=== PATIENT | female | born 1995 | race African-American/Black ===

== ENCOUNTER → 2020-10-20 17:38 | Outpatient (CLI) | payer BC, SELFPAY ==
[2020-10-20 19:00] LABS: HCG,Quantitative 96392 mIU/ml (0-5.42)
== END ==
PROVIDERS: Visit Provider Obstetrics & Gynecology
DX: Z32.00 Encounter for pregnancy test, result unknown (principal)
CPT/HCPCS: 36415; 84702

== ENCOUNTER 2020-10-20 19:20 | Emergency (ER) | payer BC, SELFPAY ==
--- NOTE | 2020-10-20 19:15 | ECG_ITS ---
APPROVED REPORT Exam: Resting ECG HR:96 bpm ECG Measurements Heart Rate 96 AXES AK 114 P 42 QRSd 84 QRS 51 QT 352 T 29 QTc 444 Conclusion Normal sinus rhythm Nonspecific ST and T wave abnormality Abnormal ECG Electronically signed by : Soren Rowe, 10/21/2020 09:58:43
[2020-10-20 19:20] VITALS: BP 169/107; PULSE 92; RESP 16; TEMP 37.4; O2SAT 97; BMI 33.3
--- NOTE | 2020-10-20 19:21 | HMH.EDGENADL ---
ED Disposition Condition on Discharge: Fair - Critical Care Critical Care Time: No <Davidson Kaye - Last Filed: 10/20/20 20:04> <Sherman Brunson - Last Filed: 10/20/20 21:01> Clinical Impression: Vomiting Qualifiers: Vomiting type: unspecified Vomiting Intractability: unspecified Nausea presence: unspecified Qualified Code(s): R11.10 - Vomiting, unspecified Qualifiers: Weeks of gestation: 9 weeks Qualified Code(s): Z3A.09 - 9 weeks gestation of Disposition: Home, Self-Care Instructions: DI for -- Discomforts and Remedies Additional Instructions: use meds and call ob for follow up Prescriptions: Promethazine HCl [Phenergan 25mg tab] 25 mg PO Q6H PRN #20 tab PRN Reason: Nausea And Vomiting Transmission Status: Pending to [id number] Referrals: PCP,Kori [Primary Care Provider] - Jessica Lafleur MD [Staff Physician] - Attestation: On 10/20/20, the high probability of a clinically significant, sudden or life threatening deterioration of the following system(s) required my full and direct attention, intervention and personal management. The time I documented below is in addition to time spent performing reported procedures but includes the following listed in this critical care notation. Medical Decision Making - Medical Records Medical records reviewed: Yes: I reviewed the patient's medical records. - Nilesh Inquiry Pt receiving controlled substance: No - Lab Data Result diagrams: 10/20/20 19:22 10/20/20 19:22 <AndivaldezDavidson - Last Filed: 10/20/20 20:04> - Lab Data Lab results reviewed: Yes: I reviewed the patient's lab results. Result diagrams: 10/20/20 19:22 10/20/20 19:22 - US Data US Images: Pelvis ED US Reviewed: Yes: I discussed the US results w/the radiologist Preliminary Findings: Normal/NAD - Physician Consults Physician Consulted: shayla Reason -: Pt condition <Sherman Brunson - Last Filed: 10/20/20 21:01> Vital Signs: 10/20/20 19:20 10/20/20 20:00 10/20/20 20:30 Temperature 99.3 F Temperature Source Oral Pulse Rate [Left Radial] 92 H 85 86 Respiratory Rate 16 16 Blood Pressure [Right Arm] 169/107 H 185/99 H 133/86 Blood Pressure Mean [Right Arm] 127 127 101 Blood Pressure Source [Right Arm] Automatic Cuff Automatic Cuff Automatic Cuff Blood Pressure Position [Right Arm] Supine Supine Supine 02 Sat by Pulse Oximetry 97 99 99 Oxygen Delivery Method Room Air Room Air Room Air - Lab Data Lab Results 10/20/20 19:22: WBC 9.6, RBC 5.77 H, Hgb 17.1 H, Hct 50.6 H, MCV 87.6, MCH 29.6, MCHC 33.8, RDW 12.9, Plt Count 520 H, MPV 7.0 L, Neut % (Auto) 68.5, Lymph % (Auto) 24.8, [place] % (Auto) 4.6, Eos % (Auto) 1.1, Baso % (Auto) 1.0, Neut # (Auto) 6.5, Lymph # (Auto) 2.4, [place] # (Auto) 0.4, Eos # (Auto) 0.1, Baso # (Auto) 0.1 10/20/20 19:22: Sodium 140, Potassium 3.0 L, Chloride 101, Carbon Dioxide 25, Anion Gap 17.0 H, BUN 7, Creatinine 0.70, Estimated Creat Clear 177, Estimated GFR 103, Est GFR ( Amer) 124, Glucose 117 H, Calcium 10.1, Magnesium 2.2, Total Bilirubin 0.6, AST 26, ALT 16, Alkaline Phosphatase 85, Total Protein 9.2 H, Albumin 5.0, Globulin 4.2 H, Albumin/Globulin Ratio 1.2, Lipase 70, HCG, Quant 28121 H Orders (Tests/Meds): ED MEDICATIONS Generic Name Dose Route Start Last Admin Trade Name Freq PRN Reason Stop Dose Admin Lactated Ringer's 1,000 mls @ 999 mls/hr 10/20/20 19:30 10/20/20 20:29 Lactated Ringer's 1000 Ml Bag IV 10/20/20 20:30 999 mls/hr .Q1H1M GABRIELLE Administration Discontinued Medications Generic Name Dose Route Start Last Admin Trade Name Freq PRN Reason Stop Dose Admin Metoclopramide HCl 10 mg 10/20/20 19:27 10/20/20 20:27 Metoclopramide Hcl 10mg/2ml Vial IVP 10/20/20 19:28 Not Given ONCE ONE Ondansetron HCl 4 mg 10/20/20 20:19 10/20/20 20:25 Ondansetron 4mg/2ml Vial IV 10/20/20 20:20 4 mg ONCE ONE Administration ORDERS Category Date Time
--- NOTE | 2020-10-20 19:27 | US_ITS ---
PROCEDURE: US OB <= 14 WEEKS FETUS CLINICAL INDICATION: 9 weeks + abd pain COMPARISON: No exams were available for comparison FINDINGS: An intrauterine gestational sac is present with a pole with a crown-rump length of 1.64 cm correlating to gestational age of 8 weeks 1 day. heart tones are present with an FHR of 179. Yolk sac is noted. Small right corpus luteum cyst at 1.5 cm IMPRESSION: Live IUP at 8 weeks 1 day Estimated due date by Ultrasound is 05/31/2021 Dictated by: Veto Gutierrez MD 10/21/2020 09:12 Veto Gutierrez MD in [place] 10/21/2020 09:12
--- NOTE | 2020-10-20 19:27 | XR_ITS ---
PROCEDURE: XR CHEST PORTABLE CLINICAL HISTORY: vomiting h/o ruptured esophagus COMPARISON: No exams were available for comparison FINDINGS: The cardiomediastinal silhouette and pulmonary vascularity are within normal limits. The lungs are clear without infiltrates, suspicious nodules, or pleural effusions. No acute bony abnormalities. IMPRESSION: No acute findings. Dictated by: Veto Gutierrez MD 10/21/2020 07:27 Veto Gutierrez MD in OV 10/21/2020 07:27
[2020-10-20 19:41] LABS: Basophils # 0.1 K/mm3 (0-0.2); Eosinophils # 0.1 K/mm3 (0.0-0.4); Eosinophils % 1.1 % (0.1-12.0); Hematocrit 50.6 % (37.0-47.0); Hemoglobin 17.1 g/dL (12.2-16.2); Lymphocytes # 2.4 K/mm3 (0.7-4.5); Lymphocytes % 24.8 % (10-50); Mean Corpuscular HGB Conc 33.8 g/dL (31.8-35.4); Mean Corpuscular Hemoglobin 29.6 pg (27.0-31.2); Mean Corpuscular Volume 87.6 fl (81-99); Monocytes # 0.4 K/mm3 (0.1-1.0); Monocytes % 4.6 % (1.7-9.3); Neutrophils # 6.5 K/mm3 (1.8-7.8); Neutrophils % 68.5 % (37.0-80.0); Platelet Count 520 K/mm3 (142-424); Red Blood Count 5.77 M/mm3 (4.20-5.40); Red Cell Distribution Width 12.9 % (11.5-17.5); White Blood Count 9.6 K/mm3 (4.8-10.8)
[2020-10-20 19:53] LABS: Chloride 101 mmol/L (98-107); Sodium 140 mmol/L (136-145)
[2020-10-20 19:55] LABS: Alanine Aminotransferase 16 U/L (12-78); Aspartate Amino Transferase 26 U/L (14-36); Blood Urea Nitrogen 7 mg/dl (7-17); Creatinine Clearance Estimated 177 mL/min (50-200); Estimated Glomerular Filt Rate 103 ml/min (>60); GFR (African American) 124 ML/MIN (>60)
[2020-10-20 19:56] LABS: Albumin/Globulin Ratio 1.2 (1.1-1.8); Alkaline Phosphatase 85 U/L (38-126); Bilirubin,Total 0.6 mg/dl (0.2-1.3); Calcium 10.1 mg/dl (8.4-10.2); Carbon Dioxide 25 mmol/L (22.0-30.0); Globulin 4.2 g/dL (1.3-3.2); Glucose 117 mg/dl (74-100); Lipase 70 U/L (23-300); Magnesium 2.2 mg/dl (1.6-2.3); Total Protein,Serum 9.2 g/dl (6.3-8.2)
[2020-10-20 20:00] VITALS: BP 185/99; PULSE 85; O2SAT 99
[2020-10-20 20:30] VITALS: BP 133/86; PULSE 86; RESP 16; O2SAT 99
[2020-10-20 21:12] VITALS: BP 122/74; PULSE 80; RESP 16; TEMP 36.7; O2SAT 99
== END 2020-10-20 21:14 | disposition home or self-care (01) ==
PROVIDERS: Emergency Provider Emergency Medicine
DX: O21.0 Mild hyperemesis gravidarum (principal); Z3A.08 8 weeks gestation of pregnancy
CPT/HCPCS: 71045; 76801; 80053; 83690; 83735; 84702; 85025; 93005; 96365; 96375; 99283; J2405

== ENCOUNTER 2020-10-22 19:48 | Observation (INO) | payer BC, SELFPAY ==
[2020-10-22] VITALS (7 sets, daily range): BP systolic 114–146; BP diastolic 55–86; PULSE 79–90; RESP 15–17; TEMP 36.7–37; O2SAT 98–99; BMI 33.3
[2020-10-22 20:24] LABS: Basophils # 0.1 K/mm3 (0-0.2); Eosinophils # 0.1 K/mm3 (0.0-0.4); Eosinophils % 0.5 % (0.1-12.0); Hematocrit 50.4 % (37.0-47.0); Hemoglobin 17.1 g/dL (12.2-16.2); Lymphocytes # 2.5 K/mm3 (0.7-4.5); Mean Corpuscular HGB Conc 33.9 g/dL (31.8-35.4); Mean Corpuscular Volume 88.6 fl (81-99); Mean Platelet Volume 6.7 fl (7.4-10.4); Monocytes # 0.5 K/mm3 (0.1-1.0); Monocytes % 4.6 % (1.7-9.3); Neutrophils # 7.1 K/mm3 (1.8-7.8); Neutrophils % 69.9 % (37.0-80.0); Platelet Count 469 K/mm3 (142-424); Red Cell Distribution Width 12.8 % (11.5-17.5); White Blood Count 10.2 K/mm3 (4.8-10.8)
[2020-10-22 20:34] LABS: Alanine Aminotransferase 16 U/L (12-78); Albumin Level 4.9 g/dl (3.5-5.0); Albumin/Globulin Ratio 1.2 (1.1-1.8); Alkaline Phosphatase 79 U/L (38-126); Aspartate Amino Transferase 25 U/L (14-36); Bilirubin,Total 0.5 mg/dl (0.2-1.3); Blood Urea Nitrogen 8 mg/dl (7-17); Calcium 10.1 mg/dl (8.4-10.2); Carbon Dioxide 29 mmol/L (22.0-30.0); Chloride 99 mmol/L (98-107); Creatinine Clearance Estimated 155 mL/min (50-200); Estimated Glomerular Filt Rate 88 ml/min (>60); GFR (African American) 107 ML/MIN (>60); Globulin 4.2 g/dL (1.3-3.2); Glucose 109 mg/dl (74-100); Sodium 139 mmol/L (136-145); Total Protein,Serum 9.1 g/dl (6.3-8.2)
--- NOTE | 2020-10-22 20:35 | HMH.EDPREG ---
ED Disposition Clinical Impression: Hyperemesis gravidarum Qualifiers: Weeks of gestation: 9 weeks Qualified Code(s): Z3A.09 - 9 weeks gestation of Disposition: Admitted as Observation Condition on Discharge: Good Instructions: DI for Diarrhea and Traveler's Diarrhea -- Adult, DI for Diarrhea and Traveler's Diarrhea -- Child, DI for Nausea -- Adult, DI for Nausea -- Child Referrals: Jessica Lafleur MD [Primary Care Provider] - - Critical Care Critical Care Time: No Attestation: On 10/22/20, the high probability of a clinically significant, sudden or life threatening deterioration of the following system(s) required my full and direct attention, intervention and personal management. The time I documented below is in addition to time spent performing reported procedures but includes the following listed in this critical care notation. Medical Decision Making - Medical Records Medical records reviewed: Yes: I reviewed the patient's medical records. - Nilesh Inquiry Pt receiving controlled substance: No Vital Signs: 10/22/20 19:49 10/22/20 20:30 10/22/20 21:00 Temperature 98.6 F Temperature Source Oral Pulse Rate [Right Radial] 90 87 84 Respiratory Rate 16 15 17 Blood Pressure [Right Arm] 146/86 H 133/73 114/55 L Blood Pressure Mean [Right Arm] 106 93 74 Blood Pressure Source [Right Arm] Automatic Cuff Automatic Cuff Automatic Cuff Blood Pressure Position [Right Arm] Supine Supine Supine 02 Sat by Pulse Oximetry 99 99 98 Oxygen Delivery Method Room Air Room Air Room Air 10/22/20 21:30 Temperature Temperature Source Pulse Rate [Right Radial] 84 Respiratory Rate 17 Blood Pressure [Right Arm] 127/79 Blood Pressure Mean [Right Arm] 95 Blood Pressure Source [Right Arm] Automatic Cuff Blood Pressure Position [Right Arm] Supine 02 Sat by Pulse Oximetry 98 Oxygen Delivery Method Room Air - Lab Data Lab results reviewed: Yes: I reviewed the patient's lab results. Lab Results 10/22/20 20:18: WBC 10.2, RBC 5.70 H, Hgb 17.1 H, Hct 50.4 H, MCV 88.6, MCH 30.0, MCHC 33.9, RDW 12.8, Plt Count 469 H, MPV 6.7 L, Neut % (Auto) 69.9, Lymph % (Auto) 24.0, [place] % (Auto) 4.6, Eos % (Auto) 0.5, Baso % (Auto) 1.0, Neut # (Auto) 7.1, Lymph # (Auto) 2.5, [place] # (Auto) 0.5, Eos # (Auto) 0.1, Baso # (Auto) 0.1 10/22/20 20:18: Sodium 139, Potassium 3.0 L, Chloride 99, Carbon Dioxide 29, Anion Gap 14.0, BUN 8, Creatinine 0.80, Estimated Creat Clear 155, Estimated GFR 88, Est GFR ( Amer) 107, Glucose 109 H, Calcium 10.1, Total Bilirubin 0.5, AST 25, ALT 16, Alkaline Phosphatase 79, Total Protein 9.1 H, Albumin 4.9, Globulin 4.2 H, Albumin/Globulin Ratio 1.2 10/22/20 21:30: Urine Color Yellow, Urine Appearance Clear, Urine pH 6.0, Ur Specific [place] >= 1.030, Urine Protein 1+, Urine Glucose (UA) Negative, Urine Ketones 3+, Urine Blood Negative, Urine Nitrate Negative, Urine Bilirubin Negative, Urine Urobilinogen 2.0, Ur Leukocyte Esterase 1+ A, Urine WBC 5-10, Ur Squamous Epith Cells 5-10, Amorphous Sediment Trace Result diagrams: 10/22/20 20:18 10/22/20 20:18 Orders (Tests/Meds): ED MEDICATIONS Generic Name Dose Route Start Last Admin Trade Name Freq PRN Reason Stop Dose Admin Sodium Chloride 1,000 mls @ 999 mls/hr 10/22/20 20:15 10/22/20 20:06 Sod Chlor 0.9% 1000ml Bag IV 10/22/20 21:15 999 mls/hr .Q1H1M GABRIELLE Administration Sodium Chloride 1,000 mls @ 999 mls/hr 10/22/20 21:15 10/22/20 21:39 Sod Chlor 0.9% 1000ml Bag IV 10/22/20 22:15 999 mls/hr .Q1H1M GABRIELLE Administration Discontinued Medications Generic Name Dose Route Start Last Admin Trade Name Freq PRN Reason Stop Dose Admin Promethazine HCl 25 mg 10/22/20 20:02 10/22/20 20:06 Promethazine Hcl 25mg/Ml 1ml Vial IV 10/22/20 20:03 25 mg ONCE ONE Administration Sodium Chloride 25 ml 10/22/20 20:02 10/22/20 20:06 Sodium Chloride 0.9% 25ml Bag IV 10/22/20 20:03 25 ml ONCE ONE Administration
[2020-10-22 21:36] LABS: Microscopic, Urine URINE MICROSCOPIC (MICROSCOPIC)
[2020-10-22 21:40] LABS: Appearance,Urine CLEAR (Clear); Blood, Urine Negative (Negative); Color,Urine YELLOW (Yellow); Glucose,Urine (UA) Negative (Negative); Ketones,Urine 3+ (Negative); Leukocyte Esterase,Urine 1+ (Negative); Nitrate,Urine Negative (Negative); Protein,Urine 1+ (Negative); Specific Gravity, Urine >= 1.030 (1.005-1.030)
[2020-10-22 21:44] LABS: Amorphous Sediment,Urine Trace /lpf; Bilirubin,Urine Negative (Negative)
--- NOTE | 2020-10-22 21:51 | PC.NURSE ---
Boy speaking to at this time
[2020-10-22 22:32] LABS: Coronavirus 19 IgG Antibody Positive (Negative); Coronavirus 19 IgM Antibody Negative (Negative)
--- NOTE | 2020-10-22 22:57 | PC.NURSE ---
patient to the floor via wheel chair at 2255
[2020-10-23 00:33] VITALS: BP 137/73; PULSE 88; RESP 18; TEMP 37.1; O2SAT 100; BMI 332779.2
[2020-10-23 04:00] VITALS: BP 110/60; PULSE 80; RESP 17; TEMP 36.9; O2SAT 97
[2020-10-23 07:21] LABS: Basophils # 0.1 K/mm3 (0-0.2); Basophils % 0.7 % (0.1-2.0); Eosinophils % 0.5 % (0.1-12.0); Monocytes # 0.7 K/mm3 (0.1-1.0)
[2020-10-23 07:22] LABS: Blood Urea Nitrogen 5 mg/dl (7-17); Carbon Dioxide 24 mmol/L (22.0-30.0); Creatinine Clearance Estimated 248 mL/min (50-200); Estimated Glomerular Filt Rate 152 ml/min (>60); GFR (African American) 183 ML/MIN (>60); Glucose 118 mg/dl (74-100); Sodium 138 mmol/L (136-145)
[2020-10-23 07:58] LABS: Hematocrit 38.9 % (37.0-47.0); Lymphocytes # 3.4 K/mm3 (0.7-4.5); Lymphocytes % 36.1 % (10-50); Mean Corpuscular Volume 88.2 fl (81-99); Mean Platelet Volume 7.1 fl (7.4-10.4); Monocytes % 7.1 % (1.7-9.3); Neutrophils # 5.3 K/mm3 (1.8-7.8); Neutrophils % 55.6 % (37.0-80.0); Platelet Count 400 K/mm3 (142-424); White Blood Count 9.5 K/mm3 (4.8-10.8)
[2020-10-23 08:02] LABS: Potassium 2.8 mmoL/L (3.5-5.1)
[2020-10-23 08:04] LABS: Hemoglobin 13.2 g/dL (12.2-16.2)
--- NOTE | 2020-10-23 08:37 | P.CONPHA_ITS ---
[facility] Pharm[facility] VTE Monitoring - Patient Demographics Admission date: 10/22/20 Report Date: 10/23/20 Time: 08:37 Allergies/Adverse Reactions: Patient Allergies No Known Allergies Allergy (Verified 10/20/20 20:18) Height: 1.65 cm Weight: 90.718 kg Patient Problems: Current Active Problems (Acute) Hyperemesis gravidarum (Acute) - VTE Risk Labs: VTE Related Lab Results Hgb 13.2 g/dL (12.2-16.2) D 10/23/20 06:18 Hct 38.9 % (37.0-47.0) 10/23/20 06:18 Plt Count 400 K/mm3 (142-424) 10/23/20 06:18 BUN 5 mg/dl (7-17) L D 10/23/20 06:18 Creatinine 0.50 mg/dl (0.52-1.04) L D 10/23/20 06:18 Estimated Creat Clear 248 mL/min (50-200) 10/23/20 06:18 - Prophylaxis VTE Prophylaxis Ordered?: Yes Types of VTE Prophylaxis: TEDS Knee High Location of Applied Device: Bilateral Lower Extremeties
--- NOTE | 2020-10-23 08:37 | HMH.PHAINT ---
MEDICATION RECONCILIATION COMPLETED ON PATIENT FROM PREVIOUS ED VISIT. -JAMIA MORENO, BAMBID
[2020-10-23 11:30] LABS: Calcium 8.7 mg/dl (8.4-10.2)
[2020-10-23 11:37] LABS: Anion Gap 10.8 mEq/L (5-15); Chloride 106 mmol/L (98-107)
--- NOTE | 2020-10-23 12:47 | HMH.OBAPHP ---
OB - H&P: HPI Antepartum - History of Present Illness Chief complaint: nausea/vomiting History of present illness: 25 yo @ 9 wks presented with complaint of nausea/vomiting Multiple ED visits for similar complaints; admitted for IV hydration and anti-emetics Initial labs concentrated; follow up labs this morning showed potassium 2.8 and she is getting IV potassium supplement Started on po Diclegis for nausea, with IV phenergan PRN Labs also positive IgG for covid 19 but IGM negative Transvaginal ultrasound ordered through ED, which showed viable espinosa IUP with EDC 05/31/21 - History of Present Obstetrical complications: hyperemesis [facility] History I have reviewed the patient's past medical history: Yes *Have you ever received a pneumonia vaccine?: No *Have you received a flu vaccine this season?: No Other Medical History: Reports: Other ( covid 19) Other Surgeries: No: - *Social History Smoking Status: Never smoker Alcohol Intake: never Substance Use Type: denies use *Occupational Status:: employed *Travel in the last 8 weeks: None Family Hx:: No significant family history : 3 Para: 2 LMP comments: Review of Systems - Review of Systems Review of systems:: pertinent systems reviewed and negative unless documented below - Constitutional Denies chills, Denies fever(s) - *Cardiovascular Denies chest pain - *Respiratory Denies cough - *Gastrointestinal Reports nausea, Reports vomiting - *Neurologic Denies headache(s), Denies seizure-like activity Meds Home Medications Medication Instructions Recorded Confirmed Type Promethazine HCl [Phenergan 25mg 25 mg PO Q6H PRN #20 tab 10/20/20 10/22/20 Rx tab] Allergies Allergy/AdvReac Type Severity Reaction Status Date / Time No Known Allergies Allergy Verified 10/20/20 20:18 OB - H&P: Exam - Physical Exam Vital signs: Temp Pulse Resp BP Pulse Ox 98.5 F 80 17 110/60 97 10/23/20 04:00 10/23/20 04:00 10/23/20 04:00 10/23/20 04:00 10/23/20 04:00 - Constitutional no acute distress - Routine HEENT Exam Head: Present: normocephalic, atraumatic Eye: Present: EOMI ENT: Present: mucous membranes dry - Routine Neck Exam Present: supple - Routine Respiratory Exam Absent: respiratory distress - Routine Cardiovascular Exam Present: RRR - Routine Abdominal Exam Present: soft. Absent: tenderness, distended - Routine Extremities Exam Absent: edema - Routine Neurological Exam Present: alert, oriented X3 - Routine Psychiatric Exam Present: normal affect OB - Results - Labs Labs: Short CBC 10/22/20 10/23/20 Range/Units 20:18 06:18 WBC 10.2 9.5 (4.8-10.8) K/mm3 Hgb 17.1 H 13.2 D (12.2-16.2) g/dL Hct 50.4 H 38.9 (37.0-47.0) % Plt Count 469 H 400 (142-424) K/mm3 BMP 10/22/20 10/23/20 20:18 06:18 Sodium 139 138 Potassium 3.0 L 2.8 L* Chloride 99 106 Carbon Dioxide 29 24 BUN 8 5 L D Creatinine 0.80 0.50 L D Glucose 109 H 118 H Calcium 10.1 8.7 D Liver Function 10/22/20 Range/Units 20:18 Total Bilirubin 0.5 (0.2-1.3) mg/dl AST 25 (14-36) U/L ALT 16 (12-78) U/L Alkaline Phosphatase 79 (38-126) U/L Albumin 4.9 (3.5-5.0) g/dl Urine 10/22/20 Range/Units 21:30 Urine Color Yellow (Yellow) Urine Appearance Clear (Clear) Urine pH 6.0 (5.0-8.5) Ur Specific [place] >= 1.030 (1.005-1.030) Urine Protein 1+ (Negative) Urine Glucose (UA) Negative (Negative) OB - A/P Antepartum (1) Status: Acute (2) Hypokalemia Status: Acute (3) Hyperemesis gravidarum Status: Acute - Additional Plan Additional Information:: Admission IV fluids and IV anti-emetics Potassium replacement Routine labs ordered with f/u CMP Advance diet as tolerated
[2020-10-23 15:04] LABS: Chloride 104 mmol/L (98-107)
[2020-10-23 15:05] LABS: Potassium 3.1 mmoL/L (3.5-5.1); Sodium 136 mmol/L (136-145)
[2020-10-23 15:07] LABS: Alanine Aminotransferase 11 U/L (12-78); Aspartate Amino Transferase 18 U/L (14-36); Blood Urea Nitrogen 3 mg/dl (7-17); Creatinine Clearance Estimated 248 mL/min (50-200); Estimated Glomerular Filt Rate 152 ml/min (>60); GFR (African American) 183 ML/MIN (>60)
[2020-10-23 15:08] LABS: Albumin Level 3.4 g/dl (3.5-5.0); Albumin/Globulin Ratio 1.2 (1.1-1.8); Alkaline Phosphatase 50 U/L (38-126); Anion Gap 8.1 mEq/L (5-15); Bilirubin,Total 0.4 mg/dl (0.2-1.3); Calcium 8.8 mg/dl (8.4-10.2); Carbon Dioxide 27 mmol/L (22.0-30.0); Globulin 2.8 g/dL (1.3-3.2); Glucose 129 mg/dl (74-100); Total Protein,Serum 6.2 g/dl (6.3-8.2)
--- NOTE | 2020-10-23 16:31 | PC.NURSE ---
[address] SCAN
[2020-10-23 20:00] VITALS: BP 111/56; PULSE 89; RESP 17; TEMP 37.2; O2SAT 98
[2020-10-24 04:40] VITALS: BP 112/66; PULSE 72; RESP 16; TEMP 36.8; O2SAT 98
[2020-10-24 07:57] LABS: Alanine Aminotransferase 12 U/L (12-78); Albumin Level 3.7 g/dl (3.5-5.0); Albumin/Globulin Ratio 1.2 (1.1-1.8); Alkaline Phosphatase 54 U/L (38-126); Anion Gap 12.1 mEq/L (5-15); Aspartate Amino Transferase 24 U/L (14-36); Bilirubin,Total 0.4 mg/dl (0.2-1.3); Calcium 9.2 mg/dl (8.4-10.2); Carbon Dioxide 26 mmol/L (22.0-30.0); Chloride 102 mmol/L (98-107); Creatinine Clearance Estimated 248 mL/min (50-200); Estimated Glomerular Filt Rate 152 ml/min (>60); GFR (African American) 183 ML/MIN (>60); Globulin 3.1 g/dL (1.3-3.2); Glucose 87 mg/dl (74-100); Potassium 3.1 mmoL/L (3.5-5.1); Sodium 137 mmol/L (136-145); Total Protein,Serum 6.8 g/dl (6.3-8.2)
[2020-10-24 08:00] VITALS: BP 116/67; PULSE 86; RESP 16; TEMP 36.9; O2SAT 98
[2020-10-24 08:00] LABS: Blood Urea Nitrogen < 2 mg/dl (7-17)
--- NOTE | 2020-10-24 08:32 | HMH.DCSUM ---
General - General Admission date:: 10/22/20 Discharge date: 10/24/20 HPI HPI: 25 yo admitted at 9 weeks with hyperemesis Hospital Course Hospital Course: Treated with IV fluids, anti-emetics and potassium supplementation No vomiting over night, with improvement in nausea on po diclegis and zofran Tolerating liquid diet and potassium level improved Discharged home to continue same regimen of po anti-emetics Will follow up next week for NOB office appointment labs drawn during admission and previous ultrasound has confirmed gestational age Rhogam Administration: Not Indicated Objective Vital signs: Temp Pulse Resp BP Pulse Ox 98.2 F 72 16 112/66 98 10/24/20 04:40 10/24/20 04:40 10/24/20 04:40 10/24/20 04:40 10/24/20 04:40 Narrative: CONSTITUTIONAL: no acute distress HEENT: mucous membranes moist PULMONARY: breathing unlabored without audible wheezes CV: no tachycardia or visible JVD; normal LE peripheral pulses ABD: soft, NT/ND, no guarding : deferred SKIN: no visible rash or lesions EXT: no edema LEs NEURO: alert/oriented, no altered mental status PSYCH: appropriate mood and demeanor without visible anxiety/depression Results Labs on day of discharge: Labs from last 24 hours 10/24/20 10/24/20 10/23/20 07:12 07:12 14:44 Sodium 137 136 Potassium 3.1 L 3.1 L Chloride 102 104 Carbon Dioxide 26 27 Anion Gap 12.1 8.1 BUN < 2 L D 3 L D Creatinine 0.50 L 0.50 L Estimated Creat Clear 248 248 Estimated GFR 152 152 Est GFR ( Amer) 183 183 Glucose 87 D 129 H Calcium 9.2 8.8 Total Bilirubin 0.4 0.4 AST 24 D 18 D ALT 12 11 L D Alkaline Phosphatase 54 50 Total Protein 6.8 6.2 L D Albumin 3.7 3.4 L D Globulin 3.1 2.8 Albumin/Globulin Ratio 1.2 1.2 Blood Type Pending Antibody Screen Pending 10/23/20 06:18 Sodium Potassium Chloride 106 Carbon Dioxide Anion Gap 10.8 BUN Creatinine Estimated Creat Clear Estimated GFR Est GFR ( Amer) Glucose Calcium 8.7 D Total Bilirubin AST ALT Alkaline Phosphatase Total Protein Albumin Globulin Albumin/Globulin Ratio Blood Type Antibody Screen Preliminary micro results at discharge 10/22/20 21:30 Urine Culture - Preliminary Urine,Clean Catch DS: Diagnosis - Discharge Diagnosis (1) Status: Acute (2) Hypokalemia Status: Acute (3) Hyperemesis gravidarum Status: Acute Discharge Plan - Patient Discharge Instructions ACTIVITY: Continue current activity DIET: continue same diet - Follow up Plan Disposition: Home, Self-Residential Medications: Home Medications Medication Instructions Recorded Confirmed Type Promethazine HCl [Phenergan 25mg 25 mg PO Q6H PRN #20 tab 10/20/20 10/22/20 Rx tab] Doxylamine/Pyridoxine HCl 1 tab PO BID #60 tablet. 10/24/20 Rx [Diclegis 10mg-10mg tablet] Ondansetron [Zofran 4mg ODT] 4 mg SL Q4HP PRN #30 tab.rapdis 10/24/20 Rx Prescriptions/Medication Reconciliation: New Doxylamine/Pyridoxine HCl [Diclegis 10mg-10mg tablet] 1 tab PO BID #60 tablet. Ondansetron [Zofran 4mg ODT] 4 mg SL Q4HP PRN #30 tab.rapdis PRN Reason: Nausea And Vomiting Continued Promethazine HCl [Phenergan 25mg tab] 25 mg PO Q6H PRN #20 tab PRN Reason: Nausea And Vomiting - Problem Reconciliation Problems Reviewed?: Yes
[2020-10-25 15:41] LABS: HIV Screen 4th Generation wRfx Non Reactive (Non Reactive); Hepatitis B Surface Antigen Negative (Negative); Hepatitis C Antibody 0.1 s/co ratio (0.0-0.9)
[2020-10-26 08:47] LABS: Rubella Antibodies, IgG 7.92 index (Immune >0.99)
== END 2020-10-24 10:50 | disposition home or self-care (01) ==
LOC: ER 22:02 → OB 22:49
PROVIDERS: Emergency Medicine; Admitting Provider Nurse Practitioner Obstetrics & Gynecology; Emergency Provider Emergency Medicine; PCP Obstetrics & Gynecology; Visit Provider Obstetrics & Gynecology
DX: O21.1 Hyperemesis gravidarum with metabolic disturbance (principal); Z3A.09 9 weeks gestation of pregnancy; Z86.16 Personal history of COVID-19
CPT/HCPCS: 36415; 80048; 80053; 81001; 85025; 86328; 86703; 86762; 86850; 87086; 87340; 87380; 96365; 96366; 96375; 99282; G0378; G0432

== ENCOUNTER 2020-10-28 15:19 | Emergency (ER) | payer BC, SELFPAY ==
[2020-10-28 15:22] VITALS: BP 140/91; PULSE 100; RESP 20; TEMP 37.2; O2SAT 99; BMI 33.3
--- NOTE | 2020-10-28 15:37 | HMH.EDNVD ---
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 Return to the emergency department for any acute worsening of symptoms, change in symptoms or other acute new concerns. - Critical Care Critical Care Time: No Attestation: On , the high probability of a clinically significant, sudden or life threatening deterioration of the following system(s) required my full and direct attention, intervention and personal management. The time I documented below is in addition to time spent performing reported procedures but includes the following listed in this critical care notation. Medical Decision Making - Medical Records Medical records reviewed: Yes: I reviewed the patient's medical records. - Nilesh Inquiry Pt receiving controlled substance: No Vital Signs: 10/28/20 15:22 10/28/20 16:33 Temperature 99 F Temperature Source Oral Pulse Rate [Radial] 100 H 88 Respiratory Rate 20 Blood Pressure [Right Arm] 140/91 H 118/62 Blood Pressure Mean [Right Arm] 107 80 Blood Pressure Position [Right Arm] Sitting 02 Sat by Pulse Oximetry 99 99 Oxygen Delivery Method Room Air - Lab Data Lab results reviewed: Yes: I reviewed the patient's lab results. Lab Results 10/28/20 15:50: WBC 10.2, RBC 5.70 H, Hgb 17.1 H, Hct 50.0 H, MCV 87.7, MCH 29.9, MCHC 34.1, RDW 12.8, Plt Count 480 H, MPV 6.9 L, Neut % (Auto) 73.7, Lymph % (Auto) 20.8, [place] % (Auto) 4.1, Eos % (Auto) 0.8, Baso % (Auto) 0.6, Neut # (Auto) 7.5, Lymph # (Auto) 2.1, [place] # (Auto) 0.4, Eos # (Auto) 0.1, Baso # (Auto) 0.1 10/28/20 15:50: Sodium 140, Potassium 3.9, Chloride 98, Carbon Dioxide 27, Anion Gap 18.9 H, BUN 9, Creatinine 0.60, Estimated Creat Clear 207, Estimated GFR 123, Est GFR ( Amer) 149, Glucose 105 H, Calcium 10.4 H, Phosphorus 3.9, Magnesium 2.2 Result diagrams: 10/28/20 15:50 10/28/20 15:50 Orders (Tests/Meds): ED MEDICATIONS Generic Name Dose Route Start Last Admin Trade Name Vijay PRN Reason Stop Dose Admin Sodium Chloride 1,000 mls @ 999 mls/hr 10/28/20 16:15 Sod Chlor 0.9% 1000ml Bag IV 10/28/20 17:15 .Q1H1M GABRIELLE Discontinued Medications Generic Name Dose Route Start Last Admin Trade Name Vijay PRN Reason Stop Dose Admin Sodium Chloride 1,000 mls @ 999 mls/hr 10/28/20 16:00 10/28/20 15:53 Sod Chlor 0.9% 1000ml Bag IV 10/28/20 17:00 999 mls/hr .Q1H1M GABRIELLE Administration Promethazine HCl 12.5 mg 10/28/20 15:45 10/28/20 15:53 Promethazine Hcl 25mg/Ml 1ml Vial IV 10/28/20 15:46 12.5 mg ONCE ONE Administration Sodium Chloride 25 ml 10/28/20 15:45 10/28/20 15:53 Sodium Chloride 0.9% 25ml Bag IV 10/28/20 15:46 25 ml ONCE ONE Administration Medical Decision Narrative: Patient has not had any vomiting here. She is given 2 L of fluid for dehydration evident on clinical exam and elevated anion gap. She is feeling much better, discharged home to follow-up with OB early next week for reevaluation. No vaginal bleeding or discharge, no abdominal pain on reevaluation at 1700. Nausea/Vomiting/Diarrhea HPI - General Chief complaint: Nausea/Vomiting/Diarrhea Stated complaint: 10Wk Preg weaknessmabd pain Time Seen by Provider: 10/28/20 15:37 Mode of Arrival: Ambulatory Limitations: No Limitations Description of Symptoms (Recalled from ER Triage Doc. by RN): to ed per pvt car with c/o hyperemesis pt approx 10 weeks preg and unable to keep anything down and generalized body aches. states she was admitted 2 weeks ago for same. states she was given zofran odt, phenergan and phenergan supp. with no relief. last dose of meds 1 week ago. - History of Present Illness HPI Narrative: This is a 25-year-old female with confirmed intrauterine presents to the emergency depar
[2020-10-28 15:56] LABS: Basophils # 0.1 K/mm3 (0-0.2); Basophils % 0.6 % (0.1-2.0); Eosinophils # 0.1 K/mm3 (0.0-0.4); Eosinophils % 0.8 % (0.1-12.0); Hemoglobin 17.1 g/dL (12.2-16.2); Lymphocytes # 2.1 K/mm3 (0.7-4.5); Lymphocytes % 20.8 % (10-50); Mean Corpuscular HGB Conc 34.1 g/dL (31.8-35.4); Mean Corpuscular Hemoglobin 29.9 pg (27.0-31.2); Mean Corpuscular Volume 87.7 fl (81-99); Mean Platelet Volume 6.9 fl (7.4-10.4); Monocytes # 0.4 K/mm3 (0.1-1.0); Monocytes % 4.1 % (1.7-9.3); Neutrophils # 7.5 K/mm3 (1.8-7.8); Neutrophils % 73.7 % (37.0-80.0); Platelet Count 480 K/mm3 (142-424); Red Cell Distribution Width 12.8 % (11.5-17.5); White Blood Count 10.2 K/mm3 (4.8-10.8)
[2020-10-28 16:01] LABS: Potassium 3.9 mmoL/L (3.5-5.1); Sodium 140 mmol/L (136-145)
[2020-10-28 16:02] LABS: Chloride 98 mmol/L (98-107)
[2020-10-28 16:04] LABS: Anion Gap 18.9 mEq/L (5-15); Blood Urea Nitrogen 9 mg/dl (7-17); Calcium 10.4 mg/dl (8.4-10.2); Carbon Dioxide 27 mmol/L (22.0-30.0); Creatinine Clearance Estimated 207 mL/min (50-200); Estimated Glomerular Filt Rate 123 ml/min (>60); GFR (African American) 149 ML/MIN (>60); Glucose 105 mg/dl (74-100); Phosphorous 3.9 mg/dl (2.5-4.5)
[2020-10-28 16:05] LABS: Magnesium 2.2 mg/dl (1.6-2.3)
[2020-10-28 16:33] VITALS: BP 118/62; PULSE 88; O2SAT 99
--- NOTE | 2020-10-28 16:34 | PC.NURSE ---
pt states she is feeling some relief with phenergan
[2020-10-28 18:35] VITALS: BP 116/70; PULSE 68; RESP 16; TEMP 36.6; O2SAT 98
== END 2020-10-28 18:36 | disposition home or self-care (01) ==
PROVIDERS: Emergency Provider Emergency Medicine
DX: O21.0 Mild hyperemesis gravidarum (principal); Z3A.10 10 weeks gestation of pregnancy; Z86.16 Personal history of COVID-19
CPT/HCPCS: 80048; 83735; 84100; 85025; 96365; 96366; 96375; 99282

== ENCOUNTER 2020-10-30 12:00 | Emergency (ER) | payer BC, SELFPAY ==
[2020-10-30 12:01] VITALS: BP 136/85; PULSE 89; RESP 16; TEMP 37.1; O2SAT 97; BMI 33.3
--- NOTE | 2020-10-30 12:04 | PC.NURSE ---
pt stopped on entry to provide urine sample then taken to room
--- NOTE | 2020-10-30 12:05 | PC.NURSE ---
Dr Chan request Dr Lafleur via phone to speak about plan of care for pt. Dr Chan Speaking with Dr Lafleur at this time.
--- NOTE | 2020-10-30 12:07 | HMH.EDGENADL ---
ED Disposition Clinical Impression: Hyperemesis gravidarum Disposition: Home, Self-Care Condition on Discharge: Good Instructions: DI for Hyperemesis Gravidarum Additional Instructions: Follow-up for your perinatology appointment tomorrow as scheduled. Call your database design analyst's office for refill on Phenergan. Return to the emergency department for any acute new concerns. - Critical Care Critical Care Time: No Attestation: On , the high probability of a clinically significant, sudden or life threatening deterioration of the following system(s) required my full and direct attention, intervention and personal management. The time I documented below is in addition to time spent performing reported procedures but includes the following listed in this critical care notation. Medical Decision Making - Medical Records Medical records reviewed: Yes: I reviewed the patient's medical records. - Nilesh Inquiry Pt receiving controlled substance: No Orders (Tests/Meds): ED MEDICATIONS Discontinued Medications Generic Name Dose Route Start Last Admin Trade Name Freq PRN Reason Stop Dose Admin Promethazine HCl 1 alvin 10/30/20 12:11 Promethazine 25mg Supp Take Home Pack (4) RC 10/30/20 12:12 ONCE ONE Medical Decision Narrative: Patient here with known hyperemesis gravidarum, already being evaluated by database design analyst. She has a perinatology appointment tomorrow for further discussion and management of her persistent nausea and vomiting. No vaginal bleeding or discharge. No focal abdominal pain. She has a confirmed intrauterine . I discussed this case with Dr. Lafleur who advises evaluation and administration of antiemetics. Patient with no tachycardia or hypotension, no medical signs of dehydration. She is instructed on use of Phenergan rectal suppositories. She has said in the past that these do not help her, but she did well with Phenergan IV during her visit 2 days ago, so I wonder if she is not using the suppositories correctly. She was instructed on appropriate insertion by nursing staff here, suppository was placed and she was given a take-home pack. Advised to call her database design analyst for further refills. Discharged home to follow-up with her perinatology appointment tomorrow. General Adult HPI - General Stated complaint: approx 10 weeks , vomiting Time Seen by Provider: 10/30/20 12:07 Mode of Arrival: Ambulatory Source of Information: Patient Limitations: No Limitations - History of Present Illness HPI narrative: This is a 25-year-old female who presents to the emergency department for nausea and vomiting throughout her . She was seen here on Friday, given fluids. She has had similar hyperemesis gravidarum in the past with her other pregnancies requiring a Zofran pump. She has been trying Zofran ODT today, has run out of Phenergan at home and presents here at the request of her database design analyst for further evaluation. She complains of nausea, generalized cramping, no vaginal bleeding or discharge. No fevers. - Related Data Previous Rx's Medication Instructions Recorded Promethazine HCl [Phenergan 25mg 25 mg PO Q6H PRN #20 tab 10/20/20 tab] Doxylamine/Pyridoxine HCl 1 tab PO BID #60 tablet. 10/24/20 [Diclegis 10mg-10mg tablet] Ondansetron [Zofran 4mg ODT] 4 mg SL Q4HP PRN #30 tab.rapdis 10/24/20 Allergies Allergy/AdvReac Type Severity Reaction Status Date / Time No Known Allergies Allergy Verified 10/20/20 20:18 [facility] History - Hepatitis A Screen Attestation statement:: This patient has been screened for Hepatitis A risk factors. I have reviewed the patient's past medical history: Yes Other Medical History: Reports: Other ( covid 19) Other Surgeries: No: - Social History Smoking Status: Never smoker Alcohol Intake: never Substance Use Type: denies use Occupational Status: employed Family Hx:: No significant family
[2020-10-30 13:00] VITALS: BP 125/76; PULSE 75; RESP 18; TEMP 37.1; O2SAT 99
== END 2020-10-30 13:00 | disposition home or self-care (01) ==
LOC: ER 12:21
PROVIDERS: Emergency Provider Emergency Medicine
DX: O21.0 Mild hyperemesis gravidarum (principal); Z3A.10 10 weeks gestation of pregnancy
CPT/HCPCS: 99281

== ENCOUNTER 2020-11-16 10:07 | Emergency (ER) | payer BC, SELFPAY ==
[2020-11-16] VITALS (9 sets, daily range): BP systolic 99–133; BP diastolic 57–75; PULSE 74–89; RESP 16–20; TEMP 36.6; O2SAT 96–100; BMI 31.6
[2020-11-16 10:49] LABS: Basophils % 0.4 % (0.1-2.0); Eosinophils % 0.4 % (0.1-12.0); Hematocrit 42.6 % (37.0-47.0); Hemoglobin 14.2 g/dL (12.2-16.2); Lymphocytes # 1.5 K/mm3 (0.7-4.5); Mean Corpuscular HGB Conc 33.2 g/dL (31.8-35.4); Mean Corpuscular Volume 90.4 fl (81-99); Mean Platelet Volume 6.5 fl (7.4-10.4); Monocytes # 0.5 K/mm3 (0.1-1.0); Monocytes % 4.3 % (1.7-9.3); Neutrophils # 8.6 K/mm3 (1.8-7.8); Neutrophils % 80.9 % (37.0-80.0); Platelet Count 369 K/mm3 (142-424); Red Blood Count 4.71 M/mm3 (4.20-5.40); Red Cell Distribution Width 13.4 % (11.5-17.5); White Blood Count 10.6 K/mm3 (4.8-10.8)
[2020-11-16 10:59] LABS: Alanine Aminotransferase 13 U/L (12-78); Albumin Level 4.1 g/dl (3.5-5.0); Albumin/Globulin Ratio 1.1 (1.1-1.8); Alkaline Phosphatase 71 U/L (38-126); Anion Gap 12.2 mEq/L (5-15); Aspartate Amino Transferase 20 U/L (14-36); Bilirubin,Total 0.4 mg/dl (0.2-1.3); Blood Urea Nitrogen 6 mg/dl (7-17); Calcium 9.6 mg/dl (8.4-10.2); Carbon Dioxide 24 mmol/L (22.0-30.0); Chloride 106 mmol/L (98-107); Creatinine Clearance Estimated 236 mL/min (50-200); Estimated Glomerular Filt Rate 152 ml/min (>60); GFR (African American) 183 ML/MIN (>60); Globulin 3.6 g/dL (1.3-3.2); Glucose 114 mg/dl (74-100); Potassium 3.2 mmoL/L (3.5-5.1); Sodium 139 mmol/L (136-145); Total Protein,Serum 7.7 g/dl (6.3-8.2)
--- NOTE | 2020-11-16 11:28 | HMH.EDNVD ---
ED Disposition Clinical Impression: Hyperemesis gravidarum Disposition: Home, Self-Care Condition on Discharge: Good Instructions: DI for Hyperemesis Gravidarum Referrals: PCP,No [Primary Care Provider] - Jessica Lafleur MD [Staff Physician] - - Critical Care Critical Care Time: No Attestation: On 11/16/20, the high probability of a clinically significant, sudden or life threatening deterioration of the following system(s) required my full and direct attention, intervention and personal management. The time I documented below is in addition to time spent performing reported procedures but includes the following listed in this critical care notation. Medical Decision Making - Medical Records Medical records reviewed: Yes: I reviewed the patient's medical records. - Nilesh Inquiry Pt receiving controlled substance: No Vital Signs: 11/16/20 10:08 11/16/20 10:38 11/16/20 11:38 Temperature 98 F Temperature Source Oral Pulse Rate [Radial] 89 82 78 Respiratory Rate 20 20 20 Blood Pressure [Right Arm] 133/67 101/59 L 99/57 L Blood Pressure Mean [Right Arm] 89 73 71 Blood Pressure Position [Right Arm] Sitting 02 Sat by Pulse Oximetry 98 96 97 Oxygen Delivery Method Room Air 11/16/20 12:08 11/16/20 12:30 11/16/20 13:00 Temperature Temperature Source Pulse Rate [Radial] 79 76 74 Respiratory Rate 20 18 18 Blood Pressure [Right Arm] 108/68 L 108/66 L 111/62 Blood Pressure Mean [Right Arm] 81 80 78 Blood Pressure Position [Right Arm] 02 Sat by Pulse Oximetry 98 96 97 Oxygen Delivery Method 11/16/20 13:38 11/16/20 14:13 Temperature Temperature Source Pulse Rate [Radial] 81 87 Respiratory Rate 16 18 Blood Pressure [Right Arm] 107/60 L 120/72 Blood Pressure Mean [Right Arm] 75 88 Blood Pressure Position [Right Arm] 02 Sat by Pulse Oximetry 100 99 Oxygen Delivery Method - Lab Data Lab Results 11/16/20 10:35: WBC 10.6, RBC 4.71, Hgb 14.2, Hct 42.6, MCV 90.4, MCH 30.0, MCHC 33.2, RDW 13.4, Plt Count 369, MPV 6.5 L, Neut % (Auto) 80.9 H, Lymph % (Auto) 14.0, [place] % (Auto) 4.3, Eos % (Auto) 0.4, Baso % (Auto) 0.4, Neut # (Auto) 8.6 H, Lymph # (Auto) 1.5, [place] # (Auto) 0.5, Eos # (Auto) 0.0, Baso # (Auto) 0.0 11/16/20 10:35: Sodium 139, Potassium 3.2 L, Chloride 106, Carbon Dioxide 24, Anion Gap 12.2, BUN 6 L, Creatinine 0.50 L, Estimated Creat Clear 236, Estimated GFR 152, Est GFR ( Amer) 183, Glucose 114 H, Calcium 9.6, Total Bilirubin 0.4, AST 20, ALT 13, Alkaline Phosphatase 71, Total Protein 7.7, Albumin 4.1, Globulin 3.6 H, Albumin/Globulin Ratio 1.1 11/16/20 10:35: Lipase 67, HCG, Quant 32317 H 11/16/20 14:05: Urine Color Dk yellow, Urine Appearance Sl cloudy, Urine pH 6.5, Ur Specific [place] >= 1.030, Urine Protein 1+, Urine Glucose (UA) Negative, Urine Ketones 3+, Urine Blood Negative, Urine Nitrate Negative, Urine Bilirubin Negative, Urine Urobilinogen 1.0, Ur Leukocyte Esterase Negative, Urine RBC 3-5, Urine WBC Occasional, Ur Squamous Epith Cells 3-5, Urine Bacteria Trace Result diagrams: 11/16/20 10:35 11/16/20 10:35 Orders (Tests/Meds): ED MEDICATIONS Generic Name Dose Route Start Last Admin Trade Name Freq PRN Reason Stop Dose Admin Multivitamins 10 ml/ Thiamine 1,015 mls @ 150 mls/hr 11/16/20 11:30 11/16/20 11:42 HCl 100 mg/ Magnesium Sulfate IV 11/16/20 18:15 150 mls/hr 2 gm/ Lactated Ringer's .[id number] GABRIELLE Administration Discontinued Medications Generic Name Dose Route Start Last Admin Trade Name Freq PRN Reason Stop Dose Admin Diphenhydramine HCl 25 mg 11/16/20 11:20 11/16/20 11:42 Diphenhydramine 50mg/Ml Vial IV 11/16/20 11:21 25 mg ONCE ONE Administration Folic Acid 1 mg 11/16/20 11:27 11/16/20 11:42 Folic Acid 1mg Tablet PO 11/16/20 11:28 1 mg ONCE ONE Administration Sodium Chloride 1,000 mls @ 999 mls/hr 11/16/20 10:15 11/16/20 10:40 Sod Chlor 0.9% 1000ml Bag IV 11/16/20 11:15 999 mls/hr .Q1H1M SC
[2020-11-16 11:38] LABS: Lipase 67 U/L (23-300)
--- NOTE | 2020-11-16 13:27 | PC.NURSE ---
speaking with Dr Lafleur
[2020-11-16 14:11] LABS: Microscopic, Urine URINE MICROSCOPIC (MICROSCOPIC)
[2020-11-16 14:14] LABS: Appearance,Urine SL CLOUDY (Clear); Blood, Urine Negative (Negative); Color,Urine DK YELLOW (Yellow); Glucose,Urine (UA) Negative (Negative); Ketones,Urine 3+ (Negative); Leukocyte Esterase,Urine Negative (Negative); Nitrate,Urine Negative (Negative); PH,Urine 6.5 (5.0-8.5); Protein,Urine 1+ (Negative); Specific Gravity, Urine >= 1.030 (1.005-1.030)
[2020-11-16 14:34] LABS: Bilirubin,Urine Negative (Negative)
[2020-11-16 14:39] LABS: Bacteria,Urine Trace /lpf; WBC,Urine Occasional #/hpf (0-3)
== END 2020-11-16 15:09 | disposition home or self-care (01) ==
PROVIDERS: Emergency Provider Emergency Medicine
DX: O21.0 Mild hyperemesis gravidarum (principal); Z3A.12 12 weeks gestation of pregnancy
CPT/HCPCS: 80053; 81001; 83690; 84702; 85025; 96365; 96367; 96375; 99284; J2405

== ENCOUNTER 2020-11-18 17:31 | Observation (INO) | payer BC, SELFPAY ==
[2020-11-18 17:45] VITALS: BMI 30.7
[2020-11-18 18:44] LABS: Basophils # 0.1 K/mm3 (0-0.2); Basophils % 0.6 % (0.1-2.0); Eosinophils # 0.1 K/mm3 (0.0-0.4); Eosinophils % 0.6 % (0.1-12.0); Hematocrit 42.7 % (37.0-47.0); Hemoglobin 14.4 g/dL (12.2-16.2); Lymphocytes # 2.8 K/mm3 (0.7-4.5); Lymphocytes % 24.2 % (10-50); Mean Corpuscular HGB Conc 33.8 g/dL (31.8-35.4); Mean Corpuscular Hemoglobin 29.9 pg (27.0-31.2); Mean Corpuscular Volume 88.4 fl (81-99); Mean Platelet Volume 7.5 fl (7.4-10.4); Monocytes # 0.5 K/mm3 (0.1-1.0); Monocytes % 3.9 % (1.7-9.3); Neutrophils # 8.2 K/mm3 (1.8-7.8); Neutrophils % 70.6 % (37.0-80.0); Platelet Count 410 K/mm3 (142-424); Red Blood Count 4.83 M/mm3 (4.20-5.40); Red Cell Distribution Width 13.4 % (11.5-17.5); White Blood Count 11.6 K/mm3 (4.8-10.8)
[2020-11-18 18:45] LABS: Chloride 105 mmol/L (98-107); Sodium 137 mmol/L (136-145)
[2020-11-18 18:46] VITALS: BMI 30.7
[2020-11-18 18:47] LABS: Blood Urea Nitrogen 2 mg/dl (7-17); Creatinine Clearance Estimated 192 mL/min (50-200); Estimated Glomerular Filt Rate 123 ml/min (>60); GFR (African American) 149 ML/MIN (>60)
[2020-11-18 18:48] LABS: Alanine Aminotransferase 16 U/L (12-78); Albumin Level 4.5 g/dl (3.5-5.0); Albumin/Globulin Ratio 1.2 (1.1-1.8); Alkaline Phosphatase 77 U/L (38-126); Aspartate Amino Transferase 22 U/L (14-36); Bilirubin,Total 0.6 mg/dl (0.2-1.3); Calcium 10.1 mg/dl (8.4-10.2); Carbon Dioxide 22 mmol/L (22.0-30.0); Globulin 3.8 g/dL (1.3-3.2); Glucose 107 mg/dl (74-100); Total Protein,Serum 8.3 g/dl (6.3-8.2)
--- NOTE | 2020-11-18 18:57 | US_ITS ---
PROCEDURE: US OB <= 14 WEEKS FETUS Referring Doctor: Dev Johnston Patient Age:25Y CLINICAL INDICATION: hyperemesis the COMPARISON: US US OB <= 14 WEEKS FETUS from 10/20/2020 revealed a an average ultrasound age 8 weeks 1 day at that time FINDINGS: Single viable intrauterine gestation. Placenta developing anterior. The cervix is fairly long and appears closed measuring up to 4 cm in length. Amniotic fluid satisfactory amount measurements: Heart beat 161 BPM and documented. CRL = 5.26 cm = 12 weeks 0 day. Average ultrasound age = 12 weeks 0 day reflecting an SHARON 06/02/2021 This is compared to Gestational Age 12 weeks 4 days based on LMP 08/22/2020, This reflects appropriate growth since previous study of 10/20/2020 Right ovary: Upper normal size Measures 3.9 x 2.5 x 2.7 cm and contains a cyst measuring up to 17 mm Left ovary: Normal appearance Measures 3 x 1.6 x 2.5 cm.. Unremarkable with only a tiny follicle at its superior pole An intrauterine gestational sac is present with a pole with a crown-rump length of 5.26cm correlating to gestational age of 12weeks. heart tones are present with an FHR of 161bpm. Suggest routine follow-up ultrasound 19-20 weeks. IMPRESSION: Single viable intrauterine gestation. movement seen/cardiac activity documented. Placenta developing anterior Average ultrasound age today 12 weeks 0 days.; with estimated due date by Ultrasound is 06/02/2021 (Appropriate growth and progression since 10/20/2020 ultrasound) Dictated by: Balwinder Royal MD 11/18/2020 23:26 Balwinder Royal MD in [facility] 11/18/2020 23:26
[2020-11-18 19:19] LABS: Thyroid Stimulating Hormone 0.16 uIU/mL (0.465-4.68)
--- NOTE | 2020-11-18 19:33 | PC.NURSE ---
1845 Attempted to doppler FHTs at this time, unable. Will notify overnight caregiver RN and continue to check FHTs Qshift.
--- NOTE | 2020-11-18 19:45 | PC.NURSE ---
Report received from ELIZABETH Nova.
[2020-11-18 20:00] VITALS: BP 136/81; PULSE 77; RESP 17; TEMP 37.1; O2SAT 100
--- NOTE | 2020-11-18 20:45 | PC.NURSE ---
radiology tech notified and spoke to via phone per ELIZABETH Nova before leaving r/t ultrasound that was ordered. Tech verbalizes understanding and is aware that is not performed sometime tonight, then it needs to be first thing in the morning.
--- NOTE | 2020-11-18 22:30 | PC.NURSE ---
Taken to Radiology via and [facility] for Ultrasound.
--- NOTE | 2020-11-18 22:58 | PC.NURSE ---
Back from Radiology/Ultrasound to Room 203
--- NOTE | 2020-11-18 23:30 | PC.NURSE ---
Pt transferred via WC to OB Unit - Room 280 from [facility]....
[2020-11-18 23:36] LABS: Microscopic, Urine URINE MICROSCOPIC (MICROSCOPIC)
[2020-11-18 23:38] LABS: Appearance,Urine SL CLOUDY (Clear); Blood, Urine Negative (Negative); Color,Urine DK YELLOW (Yellow); Glucose,Urine (UA) Negative (Negative); Ketones,Urine 3+ (Negative); Leukocyte Esterase,Urine Negative (Negative); Nitrate,Urine Negative (Negative); PH,Urine 6.5 (5.0-8.5); Protein,Urine 1+ (Negative); Specific Gravity, Urine 1.025 (1.005-1.030)
[2020-11-18 23:40] LABS: Bilirubin,Urine Negative (Negative)
[2020-11-18 23:41] LABS: Amorphous Sediment,Urine Trace /lpf; Mucus,Urine 4+ /lpf; Squamous Epithelial Cell,Urine 20-50 #/hpf (0-5)
[2020-11-18 23:48] LABS: Opiate Screen,Urine Negative ng/ml (<300)
[2020-11-18 23:49] LABS: Phencyclidine Screen,Urine Negative ng/ml (<25)
[2020-11-18 23:50] LABS: Benzodiazepines Screen,Urine Negative ng/ml (<200)
[2020-11-18 23:51] LABS: Amphetamine/Metha Screen,Urine Negative ng/ml (<1000); Barbiturates Screen,Urine Negative ng/ml (<200)
[2020-11-18 23:52] LABS: Cannabinoid Screen,Urine Negative ng/ml (<50)
[2020-11-18 23:53] LABS: Cocaine Screen,Urine Negative ng/ml (<300); Methadone Screen,Urine Negative ng/ml (<300)
--- NOTE | 2020-11-19 00:20 | PC.NURSE ---
FHTs 160
--- NOTE | 2020-11-19 04:22 | PC.NURSE ---
Pt has rested well throughout the night. Easily awaken, drank 4 Apple juices without any incident of emesis. IV fluids continue infusing at 150mls/hr.
[2020-11-19 04:23] VITALS: BP 118/74; PULSE 89; RESP 18; TEMP 36.7; O2SAT 99
[2020-11-19 08:00] VITALS: BP 111/53; PULSE 75; RESP 20; TEMP 36.8; O2SAT 98
--- NOTE | 2020-11-19 08:40 | PC.NURSE ---
dr. barrios here rounding. going to send patient home this am
--- NOTE | 2020-11-19 08:48 | HMH.ACPN2 ---
Internal Medicine - PN: Subj *Date: 11/19/20 (This 25-year-old 3, para 2, Ab0 white female was admitted yesterday for observation and treatment of hyperemesis gravidarum. She had had significant nausea and vomiting and weight loss and had failed outpatient treatment with oral antiemetics and even rectal suppositories of Phenergan. She was unable to keep anything down orally. She had been to the emergency room at least twice for IV fluids, which initially helped but then her symptoms worsened when she returned home each time. Her early (12 weeks.. Normal ultrasound yesterday) has been otherwise uncomplicated. She had similar problems with her previous . Review of systems is otherwise normal. She denies smoking, drinking, or drug abuse. Her past medical and surgical histories are unremarkable. Catie history is noncontributory.) *Time: 08:48 Interval history: After several liters of IV fluids, the patient's symptoms abated. Her hemoglobin on admission was 14.4 g; hematocrit 42.7%. White count slightly elevated at 11.6. Potassium a little bit low at 3.0. BUN 2.0, but creatinine 0.6 (dehydration). If she tolerates food this morning she will be discharged. She has a follow-up appointment in [address] Lafleur. Exam Vital signs and Labs for Last 24 Hours: Temp Pulse Resp BP Pulse Ox 98.2 F 75 20 111/53 L 98 11/19/20 08:00 11/19/20 08:00 11/19/20 08:00 11/19/20 08:00 11/19/20 08:00 Laboratory Results - last 24 hr 11/18/20 18:05: WBC 11.6 H, RBC 4.83, Hgb 14.4, Hct 42.7, MCV 88.4, MCH 29.9, MCHC 33.8, RDW 13.4, Plt Count 410, MPV 7.5, Neut % (Auto) 70.6, Lymph % (Auto) 24.2, [place] % (Auto) 3.9, Eos % (Auto) 0.6, Baso % (Auto) 0.6, Neut # (Auto) 8.2 H, Lymph # (Auto) 2.8, [place] # (Auto) 0.5, Eos # (Auto) 0.1, Baso # (Auto) 0.1 11/18/20 18:05: Sodium 137, Potassium 3.0 L, Chloride 105, Carbon Dioxide 22, Anion Gap 13.0, BUN 2 L D, Creatinine 0.60, Estimated Creat Clear 192, Estimated GFR 123, Est GFR ( Amer) 149, Glucose 107 H, Calcium 10.1, Total Bilirubin 0.6, AST 22, ALT 16, Alkaline Phosphatase 77, Total Protein 8.3 H, Albumin 4.5, Globulin 3.8 H, Albumin/Globulin Ratio 1.2, TSH 0.16 L 11/18/20 23:28: Urine Opiates Screen Negative, Urine Methadone Screen Negative, Ur Barbituates Screen Negative, Ur Phencyclidine Scrn Negative, Ur Amphetamines Screen Negative, U Benzodiazepines Scrn Negative, Urine Cocaine Screen Negative, U Marijuana (THC) Screen Negative 11/18/20 23:28: Urine Color Dk yellow, Urine Appearance Sl cloudy, Urine pH 6.5, Ur Specific [place] 1.025, Urine Protein 1+, Urine Glucose (UA) Negative, Urine Ketones 3+, Urine Blood Negative, Urine Nitrate Negative, Urine Bilirubin Negative, Urine Urobilinogen 2.0, Ur Leukocyte Esterase Negative, Ur Squamous Epith Cells 20-50, Amorphous Sediment Trace, Urine Mucus 4+ I & O for Last 24 hours: Intake & Output 11/16/20 11/17/20 11/18/20 11/19/20 11:59 11:59 11:59 11:59 Weight 185 lb Microbiology Reports for the Last 24 Hours: Microbiology 11/18/20 18:00 Nasopharyngeal Coronavirus COVID-19 PCR - Final
--- NOTE | 2020-11-19 08:54 | HMH.DCSUM ---
General - General Admission date:: 11/18/20 Discharge date: 11/19/20 (Refer to today's notes for a short history and physical. This 25-year-old 3, para 2, Ab0 white female was admitted at 12 weeks of gestation (ultrasound concurs) with significant hyperemesis gravidarum. She was treated with IV fluids and her symptoms have cleared. If she tolerates food this morning, she will be discharged. She has a follow-up appointment scheduled with Dr. Lafleur in 1 week.) Objective Vital signs: Temp Pulse Resp BP Pulse Ox 98.2 F 75 20 111/53 L 98 11/19/20 08:00 11/19/20 08:00 11/19/20 08:00 11/19/20 08:00 11/19/20 08:00 Results Labs on day of discharge: Labs from last 24 hours 11/18/20 11/18/20 11/18/20 23:28 23:28 18:05 WBC RBC Hgb Hct MCV MCH MCHC RDW Plt Count MPV Neut % (Auto) Lymph % (Auto) [place] % (Auto) Eos % (Auto) Baso % (Auto) Neut # (Auto) Lymph # (Auto) [place] # (Auto) Eos # (Auto) Baso # (Auto) Sodium 137 Potassium 3.0 L Chloride 105 Carbon Dioxide 22 Anion Gap 13.0 BUN 2 L D Creatinine 0.60 Estimated Creat Clear 192 Estimated GFR 123 Est GFR ( Amer) 149 Glucose 107 H Calcium 10.1 Total Bilirubin 0.6 AST 22 ALT 16 Alkaline Phosphatase 77 Total Protein 8.3 H Albumin 4.5 Globulin 3.8 H Albumin/Globulin Ratio 1.2 TSH 0.16 L Urine Color Dk yellow Urine Appearance Sl cloudy Urine pH 6.5 Ur Specific [place] 1.025 Urine Protein 1+ Urine Glucose (UA) Negative Urine Ketones 3+ Urine Blood Negative Urine Nitrate Negative Urine Bilirubin Negative Urine Urobilinogen 2.0 Ur Leukocyte Esterase Negative Ur Squamous Epith Cells 20-50 Amorphous Sediment Trace Urine Mucus 4+ Urine Opiates Screen Negative Urine Methadone Screen Negative Ur Barbituates Screen Negative Ur Phencyclidine Scrn Negative Ur Amphetamines Screen Negative U Benzodiazepines Scrn Negative Urine Cocaine Screen Negative U Marijuana (THC) Screen Negative 11/18/20 18:05 WBC 11.6 H RBC 4.83 Hgb 14.4 Hct 42.7 MCV 88.4 MCH 29.9 MCHC 33.8 RDW 13.4 Plt Count 410 MPV 7.5 Neut % (Auto) 70.6 Lymph % (Auto) 24.2 [place] % (Auto) 3.9 Eos % (Auto) 0.6 Baso % (Auto) 0.6 Neut # (Auto) 8.2 H Lymph # (Auto) 2.8 [place] # (Auto) 0.5 Eos # (Auto) 0.1 Baso # (Auto) 0.1 Sodium Potassium Chloride Carbon Dioxide Anion Gap BUN Creatinine Estimated Creat Clear Estimated GFR Est GFR ( Amer) Glucose Calcium Total Bilirubin AST ALT Alkaline Phosphatase Total Protein Albumin Globulin Albumin/Globulin Ratio TSH Urine Color Urine Appearance Urine pH Ur Specific [place] Urine Protein Urine Glucose (UA) Urine Ketones Urine Blood Urine Nitrate Urine Bilirubin Urine Urobilinogen Ur Leukocyte Esterase Ur Squamous Epith Cells Amorphous Sediment Urine Mucus Urine Opiates Screen Urine Methadone Screen Ur Barbituates Screen Ur Phencyclidine Scrn Ur Amphetamines Screen U Benzodiazepines Scrn Urine Cocaine Screen U Marijuana (THC) Screen Discharge Plan - Patient Discharge Instructions Additional Instructions: drink plenty of fluids take antiemetic's as prescribed. Patient Instructions: Nausea of (Alternative Therapy), Support (Alternative Therapy), Hemorrhage, DI for Hyperemesis Gravidarum, Preventing the Spread of Coronavirus Discharge Instructions - Follow up Plan Follow up with: Jessica Lafleur MD [Primary Care Provider] - Home Medications: Home Medications Medication Instructions Recorded Confirmed Type Promethazine HCl [Phenergan 25mg 25 mg PO Q6H PRN #20 tab 10/20/20 11/18/20 Rx tab] Ondansetron [Zofran 4mg ODT] 4 mg SL Q4HP PRN #30 tab.rapdis 10/24/20 11/18/20 Rx pr
--- NOTE | 2020-11-19 09:49 | PC.NURSE ---
patient able to tolerate a few bites of eggs and toast. stopped eating r/t stomach hurting. no needs
== END 2020-11-19 11:58 | disposition home or self-care (01) ==
LOC: 2ND 17:32 → OB 23:27
PROVIDERS: Admitting Provider Obstetrics & Gynecology; PCP Obstetrics & Gynecology; Visit Provider Obstetrics & Gynecology
DX: O21.0 Mild hyperemesis gravidarum (principal)
CPT/HCPCS: 76801; 80053; 80305; 81001; 84443; 85025; G0378; U0003

== ENCOUNTER 2020-11-20 12:36 | Outpatient (CLI) | payer BC, SELFPAY ==
[2020-11-20 13:04] VITALS: BP 128/52; PULSE 85; RESP 18; TEMP 36.5; O2SAT 99
[2020-11-20 13:34] VITALS: BP 127/72; PULSE 82; RESP 16; O2SAT 100
[2020-11-20 14:03] VITALS: BP 125/69; PULSE 79; RESP 16; TEMP 36.6; O2SAT 99
== END 2020-11-20 14:10 | disposition home or self-care (01) ==
LOC: INF 12:36
PROVIDERS: PCP Obstetrics & Gynecology; Visit Provider Obstetrics & Gynecology
DX: E86.0 Dehydration (principal); R11.2 Nausea with vomiting, unspecified; Z3A.12 12 weeks gestation of pregnancy
CPT/HCPCS: 96360; 96375; J2405

== ENCOUNTER 2020-12-04 04:50 | Emergency (ER) | payer BC, SELFPAY ==
--- NOTE | 2020-12-04 04:47 | ECG_ITS ---
APPROVED REPORT Exam: Resting ECG HR:117 bpm ECG Measurements Heart Rate 117 AXES MT 130 P 54 QRSd 76 QRS 49 QT 342 T -19 QTc [address] & T wave abnormality, consider inferior ischemia Abnormal ECG Electronically signed by : Soren Rowe, 12/04/2020 19:21:55
[2020-12-04 04:50] VITALS: BP 129/87; PULSE 95; RESP 22; TEMP 36.6; O2SAT 97; BMI 29.2
--- NOTE | 2020-12-04 04:55 | XR_ITS ---
PROCEDURE: XR CHEST 2V CLINICAL HISTORY: cp Chest pain and shortness of air COMPARISON: CR XR CHEST PORTABLE from 10/20/2020 FINDINGS: There is a pneumo mediastinum and also suspected pneumopericardium with air density along the right and left aspect of the heart and along the inferior aspect of the heart. There is also small amount of subcutaneous air in the neck and supraclavicular region consistent with pneumomediastinum and pneumopericardium. No evidence of pneumothorax. No lobar consolidation or collapse. There is normal heart size. No acute bony findings. IMPRESSION: Pneumo mediastinum with also suspected pneumopericardium and small amount of subcutaneous emphysema in the neck. No evidence of pneumothorax. Results were called to the emergency room and given to Bro on 5:58 a.m., 12/04 2020 Dictated by: Veto Gutierrez MD 12/04/2020 05:58 Veto Gutierrez MD in [facility] 12/04/2020 05:58
--- NOTE | 2020-12-04 04:59 | PC.NURSE ---
FHR 160
[2020-12-04 05:04] LABS: Basophils # 0.1 K/mm3 (0-0.2); Basophils % 0.5 % (0.1-2.0); Eosinophils # 0.1 K/mm3 (0.0-0.4); Eosinophils % 0.8 % (0.1-12.0); Hematocrit 46.4 % (37.0-47.0); Hemoglobin 15.8 g/dL (12.2-16.2); Lymphocytes # 2.6 K/mm3 (0.7-4.5); Lymphocytes % 16.5 % (10-50); Mean Corpuscular HGB Conc 34.1 g/dL (31.8-35.4); Mean Corpuscular Hemoglobin 30.1 pg (27.0-31.2); Mean Corpuscular Volume 88.2 fl (81-99); Mean Platelet Volume 6.7 fl (7.4-10.4); Monocytes # 0.7 K/mm3 (0.1-1.0); Monocytes % 4.6 % (1.7-9.3); Neutrophils # 12.5 K/mm3 (1.8-7.8); Neutrophils % 77.7 % (37.0-80.0); Platelet Count 523 K/mm3 (142-424); Red Blood Count 5.26 M/mm3 (4.20-5.40); Red Cell Distribution Width 13.5 % (11.5-17.5); White Blood Count 16.1 K/mm3 (4.8-10.8)
--- NOTE | 2020-12-04 05:06 | PC.NURSE ---
spoke with sonia from pharmacy. she recommended diclegis 2 tablets for nausea
[2020-12-04 05:12] LABS: MANUAL DIFFERENTIAL MANUAL DIFFERENTIAL (MANUAL DIFF)
[2020-12-04 05:13] LABS: Chloride 104 mmol/L (98-107); Sodium 138 mmol/L (136-145)
[2020-12-04 05:14] LABS: Lymphocytes % 17 % (10-50); Neutrophils % 80 % (42-76); Platelet Estimate Slight Increase; Potassium 3.2 mmoL/L (3.5-5.1); RBC Morphology Normal; Total Cells Counted 100
[2020-12-04 05:16] LABS: Amylase 80 U/L (30-110); Anion Gap 17.2 mEq/L (5-15); Bilirubin,Unconjugated 0.6 mg/dL (0.0-1.1); Blood Urea Nitrogen 7 mg/dl (7-17); Carbon Dioxide 20 mmol/L (22.0-30.0); Creatinine Clearance Estimated 211 mL/min (50-200); Estimated Glomerular Filt Rate 152 ml/min (>60); GFR (African American) 183 ML/MIN (>60); Lipase 63 U/L (23-300)
[2020-12-04 05:17] LABS: Alanine Aminotransferase 16 U/L (12-78); Albumin Level 4.8 g/dl (3.5-5.0); Alkaline Phosphatase 87 U/L (38-126); Aspartate Amino Transferase 23 U/L (14-36); Bilirubin,Indirect 0.6 mg/dL (0.0-0.9); Bilirubin,Total 0.6 mg/dl (0.2-1.3); Calcium 10.6 mg/dl (8.4-10.2); Glucose 133 mg/dl (74-100); Total Protein,Serum 8.6 g/dl (6.3-8.2)
--- NOTE | 2020-12-04 05:17 | PC.NURSE ---
pt refused to take diclegis. spoke with simi from pharmacy and she states ok to gvie promethazine 23mg iv one time
[2020-12-04 05:20] VITALS: BP 125/88; PULSE 105; RESP 18; O2SAT 99
[2020-12-04 05:22] LABS: C-Reactive Protein 30.6 mg/L (0-4)
[2020-12-04 05:30] VITALS: BP 115/67; PULSE 87; RESP 17; O2SAT 99
[2020-12-04 05:33] LABS: Procalcitonin 0.055 ng/mL (0.0-2.0)
[2020-12-04 05:40] LABS: Troponin I < 0.01 ng/ml (0.00-0.034)
[2020-12-04 05:41] LABS: Erythrocyte Sedimentation Rate 50 mm/hr (0-20)
[2020-12-04 05:44] LABS: Occult Blood,Stool Negative (Negative)
[2020-12-04 06:00] VITALS: BP 120/68; PULSE 90; RESP 17; O2SAT 99
--- NOTE | 2020-12-04 06:00 | PC.NURSE ---
Dr Gutierrez called with abnormal Chest X-ray Dr Brunson Notified
--- NOTE | 2020-12-04 06:00 | HMH.EDCP ---
ED Disposition Clinical Impression: Boerhaave's syndrome, Hyperemesis gravidarum Qualifiers: Weeks of gestation: 14 weeks Qualified Code(s): Z3A.14 - 14 weeks gestation of Disposition: Xfer Short-Term Hosp Condition on Discharge: Good Referrals: PCP,No [Primary Care Provider] - Forms: Transfer Record - ED - Critical Care Critical Care Time: No Attestation: On 12/04/20, the high probability of a clinically significant, sudden or life threatening deterioration of the following system(s) required my full and direct attention, intervention and personal management. The time I documented below is in addition to time spent performing reported procedures but includes the following listed in this critical care notation. Medical Decision Making - Medical Records Medical records reviewed: Yes: I reviewed the patient's medical records. - Nilesh Inquiry Pt receiving controlled substance: No Vital Signs: 12/04/20 04:50 12/04/20 05:20 12/04/20 05:30 Temperature 97.8 F Temperature Source Oral Pulse Rate [Right] 95 H 105 H 87 Respiratory Rate 22 18 17 Blood Pressure [Right Arm] 129/87 125/88 115/67 Blood Pressure Mean [Right Arm] 101 100 83 Blood Pressure Source [Right Arm] Automatic Cuff Automatic Cuff Blood Pressure Position [Right Arm] Supine Supine 02 Sat by Pulse Oximetry 97 99 99 Oxygen Delivery Method Room Air Room Air 12/04/20 06:00 Temperature Temperature Source Pulse Rate [Right] 90 Respiratory Rate 17 Blood Pressure [Right Arm] 120/68 Blood Pressure Mean [Right Arm] 85 Blood Pressure Source [Right Arm] Automatic Cuff Blood Pressure Position [Right Arm] Supine 02 Sat by Pulse Oximetry 99 Oxygen Delivery Method Room Air - Lab Data Lab results reviewed: Yes: I reviewed the patient's lab results. Lab Results 12/04/20 04:55: WBC 16.1 H, RBC 5.26, Hgb 15.8, Hct 46.4, MCV 88.2, MCH 30.1, MCHC 34.1, RDW 13.5, Plt Count 523 H, MPV 6.7 L, Neut % (Auto) 77.7, Lymph % (Auto) 16.5, [place] % (Auto) 4.6, Eos % (Auto) 0.8, Baso % (Auto) 0.5, Neut # (Auto) 12.5 H, Lymph # (Auto) 2.6, [place] # (Auto) 0.7, Eos # (Auto) 0.1, Baso # (Auto) 0.1, Total Counted 100, Neutrophils % (Manual) 80 H, Band Neutrophils % 3.0, Lymphocytes % (Manual) 17, Platelet Estimate Slight increase, RBC Morphology Normal 12/04/20 04:55: Sodium 138, Potassium 3.2 L, Chloride 104, Carbon Dioxide 20 L, Anion Gap 17.2 H, BUN 7, Creatinine 0.50 L, Estimated Creat Clear 211, Estimated GFR 152, Est GFR ( Amer) 183, Glucose 133 H, Calcium 10.6 H, Total Bilirubin 0.6, Direct Bilirubin 0.0, Conjugated Bilirubin 0.0, Indirect Bilirubin 0.6, Unconjugated Bilirubin 0.6, AST 23, ALT 16, Alkaline Phosphatase 87, Troponin I < 0.01, Total Protein 8.6 H, Albumin 4.8, Amylase 80 12/04/20 04:55: C-Reactive Protein 30.6 H, Lipase 63 12/04/20 04:55: ESR 50 H 12/04/20 04:55: Procalcitonin 0.055 12/04/20 05:37: Stool Occult Blood Negative 12/04/20 05:50: Lactate 1.1 Result diagrams: 12/04/20 04:55 12/04/20 04:55 Orders (Tests/Meds): ED MEDICATIONS Generic Name Dose Route Start Last Admin Trade Name Freq PRN Reason Stop Dose Admin Doxylamine Succinate/Pyridoxine 2 tab 12/04/20 05:05 12/04/20 05:16 Doxylamine 10mg/Pyridoxine 10mg Tablet PO 01/03/21 05:04 Not Given HS GABRIELLE Sodium Chloride 1,000 mls @ 999 mls/hr 12/04/20 05:00 12/04/20 05:14 Sod Chlor 0.9% 1000ml Bag IV 12/04/20 06:00 999 mls/hr .Q1H1M GABRIELLE Administration Sodium Chloride 1,000 mls @ 200 mls/hr 12/04/20 06:30 12/04/20 06:21 Sod Chlor 0.9% 1000ml Bag IV 01/03/21 06:29 200 mls/hr .Q5H GABRIELLE Administration Discontinued Medications Generic Name Dose Route Start Last Admin Trade Name Freq PRN Reason Stop Dose Admin Promethazine HCl 25 mg 12/04/20 05:17 12/04/20 05:21 Promethazine Hcl 25mg/Ml 1ml Vial IV 12/04/20 05:18 25 mg ONCE ONE Administration Sodium Chloride 25 ml 12/04/20 05:17 12/04/20 05:21 Sodium Chloride
--- NOTE | 2020-12-04 06:02 | PC.NURSE ---
[facility].
[2020-12-04 06:07] LABS: Lactic Acid 1.1 mmol/L (0.7-2.1)
--- NOTE | 2020-12-04 06:24 | PC.NURSE ---
brianna on phone with [facility]
--- NOTE | 2020-12-04 06:32 | PC.NURSE ---
speaking to dr gutierrez at this time with .
--- NOTE | 2020-12-04 06:34 | PC.NURSE ---
Dr Brunson speaking with ER for admission
--- NOTE | 2020-12-04 06:36 | PC.NURSE ---
dr. gutierrez accepted but wants md to speak to ct surgeon
--- NOTE | 2020-12-04 06:39 | PC.NURSE ---
dr gutierrez accepted at [facility]
--- NOTE | 2020-12-04 06:39 | PC.NURSE ---
Dr Adorno accepted, but wanted Dr Brunson to kell with Dr noble with [facility] Surgery
[2020-12-04 06:55] VITALS: BP 137/76; PULSE 102; RESP 20; TEMP 36.7; O2SAT 97
== END 2020-12-04 07:16 | disposition short-term general hospital (02) ==
PROVIDERS: Emergency Provider Emergency Medicine
DX: K22.3 Perforation of esophagus (principal); O21.0 Mild hyperemesis gravidarum; Z3A.14 14 weeks gestation of pregnancy
CPT/HCPCS: 71046; 80048; 80076; 82150; 82272; 83605; 83690; 84145; 84484; 85007; 85025; 85651; 86140; 87040; 87077; 87186; 93005; 96366; 96375; 99284; G0328

== ENCOUNTER → 2020-12-07 15:33 | Outpatient (CLI) | payer BC, SELFPAY | PROVIDERS: Visit Provider Obstetrics & Gynecology | DX: Z34.90 Encounter for supervision of normal pregnancy, unspecified, unspecified trimester (principal); Z3A.15 15 weeks gestation of pregnancy | CPT/HCPCS: 36415 ==

== ENCOUNTER 2020-12-11 11:04 | Outpatient (CLI) | payer BC, SELFPAY ==
[2020-12-11 11:25] VITALS: BP 138/79; PULSE 101; RESP 20; TEMP 36.3; O2SAT 98
[2020-12-11 11:55] VITALS: BP 126/71; PULSE 98; RESP 20; O2SAT 98
[2020-12-11 12:30] VITALS: BP 128/76; PULSE 99; RESP 20; O2SAT 98
== END 2020-12-11 12:30 | disposition home or self-care (01) ==
LOC: INF 11:04
PROVIDERS: PCP Obstetrics & Gynecology; Visit Provider Obstetrics & Gynecology
DX: O21.0 Mild hyperemesis gravidarum (principal); Z3A.15 15 weeks gestation of pregnancy; E86.0 Dehydration; R11.2 Nausea with vomiting, unspecified
CPT/HCPCS: 96360; 96375; J2405

== ENCOUNTER 2020-12-15 09:41 | Outpatient (CLI) | payer BC, SELFPAY ==
[2020-12-15 10:23] VITALS: BP 125/72; PULSE 92; RESP 18; TEMP 36.6; O2SAT 99
[2020-12-15 10:50] VITALS: BP 126/74; PULSE 82; RESP 16; O2SAT 98
[2020-12-15 11:25] VITALS: BP 120/72; PULSE 89; RESP 18; TEMP 36.6; O2SAT 99
== END 2020-12-15 11:30 | disposition home or self-care (01) ==
LOC: INF 09:41
PROVIDERS: Visit Provider Obstetrics & Gynecology
DX: O12.01 Gestational edema, first trimester (principal); Z3A.17 17 weeks gestation of pregnancy; E86.0 Dehydration; R11.2 Nausea with vomiting, unspecified
CPT/HCPCS: 96360; 96375; J2405

== ENCOUNTER 2020-12-20 08:32 | Outpatient (CLI) | payer BC, SELFPAY ==
[2020-12-20 08:52] VITALS: BP 129/65; PULSE 85; RESP 18; TEMP 36.4; O2SAT 96
[2020-12-20 09:58] VITALS: BP 124/66; PULSE 75; RESP 18
== END 2020-12-20 09:58 | disposition home or self-care (01) ==
LOC: INF 08:33
PROVIDERS: Visit Provider Obstetrics & Gynecology
DX: O21.0 Mild hyperemesis gravidarum (principal); Z3A.17 17 weeks gestation of pregnancy; E86.0 Dehydration; R11.2 Nausea with vomiting, unspecified
CPT/HCPCS: 96360; 96375; J2405

== ENCOUNTER 2020-12-26 09:14 | Emergency (ER) | payer BC, SELFPAY ==
[2020-12-26 09:15] VITALS: BP 142/92; PULSE 120; RESP 18; TEMP 36.8; O2SAT 98; BMI 31.1
--- NOTE | 2020-12-26 09:15 | ECG_ITS ---
APPROVED REPORT Exam: Resting ECG HR:116 bpm ECG Measurements Heart Rate 116 AXES MT 96 P 42 QRSd 74 QRS 40 QT 316 T -5 QTc 439 Conclusion Poor data quality, interpretation may be adversely affected Sinus tachycardia with short MT Nonspecific ST and T wave abnormality Abnormal ECG Electronically signed by : Soren Rowe, 12/27/2020 13:22:49
--- NOTE | 2020-12-26 09:34 | HMH.EDCP ---
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 The time I documented below is in addition to time spent performing reported procedures but includes the following listed in this critical care notation. Medical Decision Making - Nilesh Inquiry Pt receiving controlled substance: No Vital Signs: 12/26/20 09:15 12/26/20 10:07 12/26/20 10:42 Temperature 98.2 F 98.2 F Temperature Source Oral Oral Pulse Rate 91 H 76 Pulse Rate [Right Radial] 120 H Respiratory Rate 18 20 18 Blood Pressure 114/73 134/85 Blood Pressure [Right Arm] 142/92 H Blood Pressure Mean 82 Blood Pressure Mean [Right Arm] 108 Blood Pressure Source Automatic Cuff Blood Pressure Source [Right Arm] Automatic Cuff Blood Pressure Position Sitting Blood Pressure Position [Right Arm] Sitting 02 Sat by Pulse Oximetry 98 95 Oxygen Delivery Method Room Air Room Air - Lab Data Lab Results 12/26/20 09:25: WBC 9.6, RBC 5.05, Hgb 15.6, Hct 46.3, MCV 91.6, MCH 30.8, MCHC 33.6, RDW 14.1, Plt Count 480 H, MPV 7.4, Neut % (Auto) 66.1, Lymph % (Auto) 26.1, [place] % (Auto) 5.4, Eos % (Auto) 1.5, Baso % (Auto) 1.0, Neut # (Auto) 6.4, Lymph # (Auto) 2.5, [place] # (Auto) 0.5, Eos # (Auto) 0.1, Baso # (Auto) 0.1 12/26/20 09:25: Sodium 138, Potassium 3.4 L, Chloride 105, Carbon Dioxide 20 L, Anion Gap 16.4 H, BUN 6 L, Creatinine 0.50 L, Estimated Creat Clear 232, Estimated GFR 152, Est GFR ( Amer) 183, Glucose 115 H, Calcium 10.2 Result diagrams: 12/26/20 09:25 12/26/20 09:25 - ECG Data Tracing #1 18 a.m. Shows a sinus tachycardia at 116 bpm. There is artifact present. There were no signs of acute ischemia. Normal axis no acute disease. Arrhythmias present: sinus tach (116 bpm) ECG compared to prior tracings: there are no significant changes (except that sinus tach now present) - Reevaluation(s) Time: 10:26 Reevaluation #1: The patient symptoms improved after intravenous Zofran was administered.. Her work-up has been essentially unremarkable. There is no evidence for life-threatening or dangerous causes for the patient's chest pain. Patient's chest pain began after vomiting. The patient has a history of esophageal tears. A chest x-ray was obtained which did not show any evidence of pneumomediastinum. The patient's heart rate was initially tachycardic but this resolved after symptoms improved and her heart rate now is 91 bpm. Patient has mild hypokalemia which does not require emergent correction. Denies any vaginal bleeding or obstetric complications. The patient states that she has Phenergan as well as Zofran at home. I feel that the patient is stable for discharge and follow-up. Medical Decision Narrative: The patient presented to the emergency department complaining of chest pain that began after vomiting. The patient is 17 weeks . She denies any related issues such as abdominal pain and or vaginal bleeding. The patient states that she has had an esophageal tear in the past which did not require surgery. She was concerned about having reinjured her esophagus at this time. The patient has Zofran and Phenergan at home. On presentation the patient was actively vomiting. Intravenous Zofran was given in the emergency department which resulted
--- NOTE | 2020-12-26 09:36 | XR_ITS ---
PROCEDURE: XR CHEST PORTABLE CLINICAL HISTORY: R/O Pneumo COMPARISON: CR XR CHEST PORTABLE from 10/20/2020 CR XR CHEST 2V from 12/04/2020 FINDINGS: The cardiomediastinal silhouette and pulmonary vascularity are within normal limits. The lungs are clear without infiltrates, suspicious nodules, or pleural effusions. No acute bony abnormalities. IMPRESSION: No acute findings. Dictated by: Fina Guidry 12/26/2020 10:14 Fina Guidry in [place] 12/26/2020 10:14
[2020-12-26 09:47] LABS: Basophils # 0.1 K/mm3 (0-0.2); Eosinophils # 0.1 K/mm3 (0.0-0.4); Eosinophils % 1.5 % (0.1-12.0); Hematocrit 46.3 % (37.0-47.0); Hemoglobin 15.6 g/dL (12.2-16.2); Lymphocytes # 2.5 K/mm3 (0.7-4.5); Lymphocytes % 26.1 % (10-50); Mean Corpuscular HGB Conc 33.6 g/dL (31.8-35.4); Mean Corpuscular Hemoglobin 30.8 pg (27.0-31.2); Mean Corpuscular Volume 91.6 fl (81-99); Mean Platelet Volume 7.4 fl (7.4-10.4); Monocytes # 0.5 K/mm3 (0.1-1.0); Monocytes % 5.4 % (1.7-9.3); Neutrophils # 6.4 K/mm3 (1.8-7.8); Neutrophils % 66.1 % (37.0-80.0); Platelet Count 480 K/mm3 (142-424); Red Blood Count 5.05 M/mm3 (4.20-5.40); Red Cell Distribution Width 14.1 % (11.5-17.5); White Blood Count 9.6 K/mm3 (4.8-10.8)
[2020-12-26 09:51] LABS: Anion Gap 16.4 mEq/L (5-15); Blood Urea Nitrogen 6 mg/dl (7-17); Calcium 10.2 mg/dl (8.4-10.2); Carbon Dioxide 20 mmol/L (22.0-30.0); Chloride 105 mmol/L (98-107); Creatinine Clearance Estimated 232 mL/min (50-200); Estimated Glomerular Filt Rate 152 ml/min (>60); GFR (African American) 183 ML/MIN (>60); Glucose 115 mg/dl (74-100); Potassium 3.4 mmoL/L (3.5-5.1); Sodium 138 mmol/L (136-145)
[2020-12-26 10:07] VITALS: BP 114/73; PULSE 91; RESP 20; O2SAT 95
[2020-12-26 10:42] VITALS: BP 134/85; PULSE 76; RESP 18; TEMP 36.8; O2SAT 96
== END 2020-12-26 10:43 | disposition home or self-care (01) ==
PROVIDERS: Emergency Provider Emergency Medicine
DX: R07.89 Other chest pain (principal); R11.10 Vomiting, unspecified; Z3A.17 17 weeks gestation of pregnancy; Z86.16 Personal history of COVID-19
CPT/HCPCS: 71045; 80048; 85025; 93005; 99282

== ENCOUNTER 2020-12-28 07:00 | Observation (INO) | payer BC, SELFPAY ==
[2020-12-28] VITALS (21 sets, daily range): BP systolic 104–158; BP diastolic 63–105; PULSE 77–111; RESP 16–18; TEMP 36.6–36.7; O2SAT 78–100; BMI 30.7; BMI 31.1
--- NOTE | 2020-12-28 07:27 | US_ITS ---
PROCEDURE: US GALLBLADDER CLINICAL INDICATION: ruq pain COMPARISON: No exams were available for comparison FINDINGS: Pancreas: The visualized pancreas is unremarkable. Liver: Unremarkable. There is appropriate direction of blood flow within a non dilated portal vein. Right kidney: Unremarkable appearing. No hydronephrosis. Gallbladder: Sludge is noted in the gallbladder. The gallbladder wall thickness measures 0.2 centimeters, within normal limits. No significant gallbladder wall thickening or pericholecystic fluid noted. The common bile duct measures 0.3 centimeters. No intra or extrahepatic biliary dilation. Sonographic Lanier's sign is positive. IMPRESSION: Gallbladder sludge with positive sonographic Lanier's sign. No other evidence of cholecystitis. Dictated by: Fina Guidry 12/28/2020 08:42 Fina Guidry in [facility] 12/28/2020 08:42
[2020-12-28 07:36] LABS: Basophils # 0.1 K/mm3 (0-0.2); Basophils % 0.6 % (0.1-2.0); Eosinophils # 0.1 K/mm3 (0.0-0.4); Eosinophils % 0.7 % (0.1-12.0); Hematocrit 43.6 % (37.0-47.0); Hemoglobin 15.4 g/dL (12.2-16.2); Lymphocytes # 2.6 K/mm3 (0.7-4.5); Lymphocytes % 19.7 % (10-50); Mean Corpuscular HGB Conc 35.3 g/dL (31.8-35.4); Mean Corpuscular Volume 87.8 fl (81-99); Monocytes # 0.6 K/mm3 (0.1-1.0); Monocytes % 4.4 % (1.7-9.3); Neutrophils % 74.7 % (37.0-80.0); Platelet Count 519 K/mm3 (142-424); Red Blood Count 4.97 M/mm3 (4.20-5.40); Red Cell Distribution Width 13.9 % (11.5-17.5); White Blood Count 13.4 K/mm3 (4.8-10.8)
[2020-12-28 07:40] LABS: Chloride 106 mmol/L (98-107); Potassium 3.1 mmoL/L (3.5-5.1); Sodium 138 mmol/L (136-145)
[2020-12-28 07:42] LABS: Amylase 88 U/L (30-110)
[2020-12-28 07:43] LABS: Alanine Aminotransferase 15 U/L (12-78); Albumin Level 4.6 g/dl (3.5-5.0); Albumin/Globulin Ratio 1.3 (1.1-1.8); Alkaline Phosphatase 85 U/L (38-126); Anion Gap 16.1 mEq/L (5-15); Aspartate Amino Transferase 20 U/L (14-36); Bilirubin,Total 0.5 mg/dl (0.2-1.3); Blood Urea Nitrogen 5 mg/dl (7-17); Calcium 10.1 mg/dl (8.4-10.2); Carbon Dioxide 19 mmol/L (22.0-30.0); Creatinine Clearance Estimated 230 mL/min (50-200); Estimated Glomerular Filt Rate 152 ml/min (>60); GFR (African American) 183 ML/MIN (>60); Globulin 3.5 g/dL (1.3-3.2); Glucose 118 mg/dl (74-100); Lipase 55 U/L (23-300); Total Protein,Serum 8.1 g/dl (6.3-8.2)
--- NOTE | 2020-12-28 08:27 | PC.NURSE ---
pt taking ice chips
--- NOTE | 2020-12-28 08:56 | HMH.EDGENADL ---
ED Disposition Clinical Impression: Hyperemesis gravidarum, Biliary colic Qualifiers: Weeks of gestation: 19 weeks Qualified Code(s): Z3A.19 - 19 weeks gestation of Disposition: Admitted as Observation Condition on Discharge: Fair Instructions: DI for Acute Abdominal Pain Referrals: PCP,No [Primary Care Provider] - - Critical Care Critical Care Time: No Attestation: On 12/28/20, the high probability of a clinically significant, sudden or life threatening deterioration of the following system(s) required my full and direct attention, intervention and personal management. The time I documented below is in addition to time spent performing reported procedures but includes the following listed in this critical care notation. Medical Decision Making - Medical Records Medical records reviewed: Yes: I reviewed the patient's medical records. - Nilesh Inquiry Pt receiving controlled substance: No Vital Signs: 12/28/20 07:01 12/28/20 08:17 12/28/20 08:18 Temperature 98.1 F Temperature Source Oral Pulse Rate 98 H Pulse Rate [Right] 111 H Respiratory Rate 16 Blood Pressure 139/74 Blood Pressure [Right Arm] 138/89 Blood Pressure Mean 86 Blood Pressure Mean [Right Arm] 105 02 Sat by Pulse Oximetry 94 L 100 Oxygen Delivery Method Room Air - Lab Data Lab Results 12/28/20 07:23: WBC 13.4 H D, RBC 4.97, Hgb 15.4, Hct 43.6, MCV 87.8, MCH 31.0, MCHC 35.3, RDW 13.9, Plt Count 519 H, MPV 7.0 L, Neut % (Auto) 74.7, Lymph % (Auto) 19.7, [place] % (Auto) 4.4, Eos % (Auto) 0.7, Baso % (Auto) 0.6, Neut # (Auto) 10.0 H, Lymph # (Auto) 2.6, [place] # (Auto) 0.6, Eos # (Auto) 0.1, Baso # (Auto) 0.1 12/28/20 07:23: Sodium 138, Potassium 3.1 L, Chloride 106, Carbon Dioxide 19 L, Anion Gap 16.1 H, BUN 5 L, Creatinine 0.50 L, Estimated Creat Clear 230, Estimated GFR 152, Est GFR ( Amer) 183, Glucose 118 H, Calcium 10.1, Total Bilirubin 0.5, AST 20, ALT 15, Alkaline Phosphatase 85, Total Protein 8.1, Albumin 4.6, Globulin 3.5 H, Albumin/Globulin Ratio 1.3, Amylase 88, Lipase 55 12/28/20 11:45: Urine Color Yellow, Urine Appearance Sl cloudy, Urine pH 7.5, Ur Specific [place] 1.020, Urine Protein 1+, Urine Glucose (UA) Negative, Urine Ketones 3+, Urine Blood Negative, Urine Nitrate Negative, Urine Bilirubin Negative, Urine Urobilinogen 1.0, Ur Leukocyte Esterase Negative, Urine RBC 3-5, Urine WBC 3-5, Ur Squamous Epith Cells 3-5, Urine Bacteria None Result diagrams: 12/28/20 07:23 12/28/20 07:23 Orders (Tests/Meds): ED MEDICATIONS Generic Name Dose Route Start Last Admin Trade Name Freq PRN Reason Stop Dose Admin Sodium Chloride 10 ml 12/28/20 11:55 Sodium Chloride 0.9% 10ml Flush Syringe IV 12/28/20 23:56 NEEDED PRN Maintain IV Site Discontinued Medications Generic Name Dose Route Start Last Admin Trade Name Freq PRN Reason Stop Dose Admin Acetaminophen 1,000 mg 12/28/20 08:24 12/28/20 08:33 Acetaminophen 500mg Tab PO 12/28/20 08:25 1,000 mg ONCE ONE Administration Diphenhydramine HCl 25 mg 12/28/20 11:55 12/28/20 12:00 Diphenhydramine 50mg/Ml Vial IV 12/28/20 11:56 25 mg ONCE ONE Administration Sodium Chloride 1,000 mls @ 999 mls/hr 12/28/20 07:15 12/28/20 07:12 Sod Chlor 0.9% 1000ml Bag IV 12/28/20 08:15 999 mls/hr .Q1H1M GABRIELLE Administration Sodium Chloride 1,000 mls @ 999 mls/hr 12/28/20 09:30 12/28/20 09:20 Sod Chlor 0.9% 1000ml Bag IV 12/28/20 10:30 999 mls/hr .Q1H1M GABRIELLE Administration Lactated Ringer's 1,000 mls @ 999 mls/hr 12/28/20 12:00 12/28/20 12:00 Lactated Ringer's 1000 Ml Bag IV 12/28/20 13:00 999 mls/hr .Q1H1M GABRIELLE Administration Ondansetron HCl 4 mg 12/28/20 07:25 12/28/20 07:26 Ondansetron 4mg/2ml Vial IV 12/28/20 07:26 4 mg ONCE ONE Administration Ondansetron HCl 4 mg 12/28/20 08:14 12/28/20 08:15 Ondansetron 4mg/2ml Vial IV 12/28/20 08:15 4 mg ONCE ONE Admini
--- NOTE | 2020-12-28 09:30 | PC.NURSE ---
PT CONTINUE TO C/O NAUSEA
--- NOTE | 2020-12-28 10:03 | PC.NURSE ---
pt up to bathroom, pt states still unable to provide a urine specimen
--- NOTE | 2020-12-28 11:05 | PC.NURSE ---
PT UPDATED ON PLAN OF CARE
[2020-12-28 11:51] LABS: Microscopic, Urine URINE MICROSCOPIC (MICROSCOPIC)
[2020-12-28 12:04] LABS: Appearance,Urine SL CLOUDY (Clear); Bilirubin,Urine Negative (Negative); Blood, Urine Negative (Negative); Color,Urine YELLOW (Yellow); Glucose,Urine (UA) Negative (Negative); Ketones,Urine 3+ (Negative); Leukocyte Esterase,Urine Negative (Negative); Nitrate,Urine Negative (Negative); PH,Urine 7.5 (5.0-8.5); Protein,Urine 1+ (Negative)
--- NOTE | 2020-12-28 12:05 | PC.NURSE ---
PT CONTINUES TO C/O RUQ ABD PAIN. UPDATED ON PLAN OF CARE
--- NOTE | 2020-12-28 12:41 | PC.NURSE ---
speaking with Dr Lafleur
--- NOTE | 2020-12-28 13:10 | PC.NURSE ---
spoke with DR Lafleur again.
--- NOTE | 2020-12-28 14:00 | PC.NURSE ---
PT RESTING, COLOR PALE. UP TO BEDSIDE. PT UPDATED ON PLAN OF CARE
[2020-12-28 14:32] LABS: Adenovirus,PCR Not Detected (NotDetected); Bordetella Pertussis Not Detected (NotDetected); Chlamydophila Pneumoniae, PCR Not Detected (NotDetected); Coronavirus 19, PCR Not Detected (NotDetected); Coronavirus 229E Not Detected (NotDetected); Coronavirus NL63 Not Detected (NotDetected); Coronavirus OC43 Not Detected (NotDetected); Coronovirus HKU1,PCR Not Detected (NotDetected); Human Metapneumovirus Not Detected (NotDetected); Influenza A, PCR Not Detected (NotDetected); Influenza AH1, 2009 Not Detected (NotDetected); Influenza AH1, PCR Not Detected (NotDetected); Influenza AH3,PCR Not Detected (NotDetected); Influenza B, PCR Not Detected (NotDetected); Mycoplasma Pneumoniae, PCR Not Detected (NotDetected); Parainfluenza 1, PCR Not Detected (NotDetected); Parainfluenza 2, PCR Not Detected (NotDetected); Parainfluenza 3, PCR Not Detected (NotDetected); Parainfluenza 4, PCR Not Detected (NotDetected); Respiratory Syncytial Virus Not Detected (NotDetected); Rhinovirus/Enterovirus Not Detected (NotDetected)
--- NOTE | 2020-12-28 15:00 | PC.NURSE ---
PT CONTINUES TO C/O RUQ ABD PAIN. TAKING ICE CHIPS
--- NOTE | 2020-12-28 16:34 | PC.NURSE ---
REPORT CALLED TO FLOOR
--- NOTE | 2020-12-28 17:50 | HMH.OBAPHP ---
OB - H&P: HPI Antepartum - History of Present Illness Chief complaint: vomiting History of present illness: 25 yo G3PP2 at 20+ weeks with nausea/vomiting she has had severe hyperemesis with this and multiple admissions for IV fluids and anti-emetics also several admissions at [facility] for hyperemesis and one admission at for perforated esophagus after vomiting 18 lb weight loss with this but recently trending in stable direction seen in ED today with abdominal pain, primarily in RUQ Ultrasound showed gallbladder slude Admitted for observation with IV fluids and anti-emetics [facility] History I have reviewed the patient's past medical history: Yes *Have you ever received a pneumonia vaccine?: No *Have you received a flu vaccine this season?: No Other Medical History: Reports: Other Other Surgeries: No: Amputation: No Fractures: No - *Social History Smoking Status: Never smoker Alcohol Intake: never Substance Use Type: denies use *Occupational Status:: other Housing: house Household Members: spouse *Travel in the last 8 weeks: None Family Hx:: No significant family history Para: 2 Review of Systems - Review of Systems Review of systems:: pertinent systems reviewed and negative unless documented below - Constitutional Denies chills, Denies fever(s) - *Gastrointestinal Reports abdominal pain, Reports nausea, Reports vomiting, Denies vomiting blood - *Genitourinary Denies abnormal vaginal bleeding - *Neurologic Denies headache(s) Meds Home Medications Medication Instructions Recorded Confirmed Type vitamins-iron fumarate 27 1 tab PO DAILY tab 11/06/20 12/28/20 History mg iron-folic acid 0.8 mg tablet Ondansetron [Zofran 4mg ODT] 4 mg PO Q4HP PRN 11/20/20 12/28/20 History promethazine 12.5 mg rectal 12.5 mg TX Q6HP PRN #12 each 12/12/20 12/28/20 Rx suppository promethazine 25 mg tablet 25 mg PO Q6H PRN #20 tab 12/12/20 12/28/20 Rx Allergies Allergy/AdvReac Type Severity Reaction Status Date / Time No Known Allergies Allergy Verified 12/26/20 09:30 OB - H&P: Exam - Physical Exam Vital signs: Temp Pulse Resp BP Pulse Ox 98 F 88 18 116/71 99 12/28/20 16:45 12/28/20 16:45 12/28/20 16:45 12/28/20 16:45 12/28/20 16:30 Narrative: CONSTITUTIONAL: no acute distress HEENT: mucous membranes moist PULMONARY: breathing unlabored without audible wheezes CV: no tachycardia or visible JVD; normal LE peripheral pulses ABD: soft, NT/ND, no guarding. Gravid uterus. : deferred SKIN: no visible rash or lesions HEME: no lymphadenopathy EXT: no edema LEs NEURO: alert/oriented, no altered mental status PSYCH: appropriate mood and demeanor without visible anxiety/depression - Routine HEENT Exam Head: Present: normocephalic, atraumatic Eye: Absent: conjunctival icterus, scleral injection ENT: Present: mucous membranes moist - Routine Neck Exam Present: supple - Routine Respiratory Exam Present: CTA bilaterally - Routine Cardiovascular Exam Present: RRR - Routine Abdominal Exam Present: soft. Absent: tenderness, distended - Routine Exam Patient deferred: external exam - Routine Extremities Exam Absent: edema - Routine Skin Exam Absent: rash - Routine Neurological Exam Present: alert, oriented X3 - Routine Psychiatric Exam Present: normal affect OB - Results - Labs Labs: Short CBC 12/28/20 Range/Units 07:23 WBC 13.4 H D (4.8-10.8) K/mm3 Hgb 15.4 (12.2-16.2) g/dL Hct 43.6 (37.0-47.0) % Plt Count 519 H (142-424) K/mm3 BMP 12/28/20 07:23 Sodium 138 Potassium 3.1 L Chloride 106 Carbon Dioxide 19 L BUN 5 L Creatinine 0.50 L Glucose 118 H Calcium 10.1 Liver Function 12/28/20 Range/Units 07:23 Total Bilirubin 0.5 (0.2-1.3) mg/dl AST 20 (14-36) U/L ALT 15 (12-78) U/L Alkaline Phosphatase 85 (38-126) U/L Albumin 4.6 (3
[2020-12-29 07:21] LABS: Chloride 107 mmol/L (98-107)
[2020-12-29 07:22] LABS: Potassium 3.1 mmoL/L (3.5-5.1); Sodium 135 mmol/L (136-145)
[2020-12-29 07:24] LABS: Creatinine Clearance Estimated 387 mL/min (50-200); Estimated Glomerular Filt Rate 273 ml/min (>60); GFR (African American) 331 ML/MIN (>60)
[2020-12-29 07:25] LABS: Anion Gap 8.1 mEq/L (5-15); Carbon Dioxide 23 mmol/L (22.0-30.0); Glucose 87 mg/dl (74-100)
[2020-12-29 07:31] LABS: Blood Urea Nitrogen < 2 mg/dl (7-17); Calcium 8.3 mg/dl (8.4-10.2)
[2020-12-29 07:40] LABS: Basophils % 0.5 % (0.1-2.0); Eosinophils # 0.2 K/mm3 (0.0-0.4); Eosinophils % 2.1 % (0.1-12.0); Hematocrit 35.1 % (37.0-47.0); Lymphocytes # 3.2 K/mm3 (0.7-4.5); Lymphocytes % 41.8 % (10-50); Mean Corpuscular HGB Conc 33.4 g/dL (31.8-35.4); Mean Corpuscular Hemoglobin 30.6 pg (27.0-31.2); Mean Corpuscular Volume 91.4 fl (81-99); Mean Platelet Volume 7.5 fl (7.4-10.4); Monocytes # 0.5 K/mm3 (0.1-1.0); Neutrophils # 3.7 K/mm3 (1.8-7.8); Neutrophils % 48.5 % (37.0-80.0); Platelet Count 362 K/mm3 (142-424); Red Blood Count 3.84 M/mm3 (4.20-5.40); Red Cell Distribution Width 13.6 % (11.5-17.5); White Blood Count 7.6 K/mm3 (4.8-10.8)
[2020-12-29 07:47] LABS: Hemoglobin 11.7 g/dL (12.2-16.2)
--- NOTE | 2020-12-29 08:23 | HMH.PHAINT ---
MEDICATION RECONCILIATION COMPLETED ON PATIENT USING EXTERNAL FILL HISTORY FROM PHARMACY AND LIST FROM MD OFFICE. -BAMBI JENKINSD
--- NOTE | 2020-12-29 08:25 | HMH.PHAVTE ---
[facility] Pharmacy VTE Monitoring - Patient Demographics Admission date: 12/28/20 Report Date: 12/29/20 Time: 08:25 Allergies/Adverse Reactions: Patient Allergies No Known Allergies Allergy (Verified 12/26/20 09:30) Height: 1.65 m Weight: 84.822 kg Patient Problems: Current Active Problems Biliary colic (Acute) 20 weeks gestation of (Acute) Unintended weight loss (Acute) (Acute) Hyperemesis gravidarum (Acute) - VTE Risk Labs: VTE Related Lab Results Hgb 11.7 g/dL (12.2-16.2) L D 12/29/20 07:07 Hct 35.1 % (37.0-47.0) L 12/29/20 07:07 Plt Count 362 K/mm3 (142-424) D 12/29/20 07:07 BUN < 2 mg/dl (7-17) L D 12/29/20 07:07 Creatinine 0.30 mg/dl (0.52-1.04) L D 12/29/20 07:07 Estimated Creat Clear 387 mL/min (50-200) H 12/29/20 07:07 - Prophylaxis VTE Prophylaxis Ordered?: Yes Types of VTE Prophylaxis: TEDS Knee High Location of Applied Device: Bilateral Lower Extremeties
--- NOTE | 2020-12-29 11:53 | HMH.DCSUM ---
General - General Admission date:: 12/28/20 Discharge date: 12/29/20 HPI HPI: admitted 20+ weeks for observation with hyperemesis IV fluids and anti-emetics over night feeling better today tolerating clears and small solids po Objective Vital signs: Temp Pulse Resp BP Pulse Ox 98 F 88 18 116/71 99 12/28/20 16:45 12/28/20 16:45 12/28/20 16:45 12/28/20 16:45 12/28/20 16:30 Narrative: CONSTITUTIONAL: no acute distress HEENT: mucous membranes moist PULMONARY: breathing unlabored without audible wheezes CV: no tachycardia or visible JVD; normal LE peripheral pulses ABD: soft, NT/ND, no guarding : deferred SKIN: no visible rash or lesions EXT: no edema LEs NEURO: alert/oriented, no altered mental status PSYCH: appropriate mood and demeanor without visible anxiety/depression Results Labs on day of discharge: Labs from last 24 hours 12/29/20 12/29/20 12/28/20 07:07 07:07 14:20 WBC 7.6 D RBC 3.84 L Hgb 11.7 L D Hct 35.1 L MCV 91.4 MCH 30.6 MCHC 33.4 RDW 13.6 Plt Count 362 D MPV 7.5 Neut % (Auto) 48.5 Lymph % (Auto) 41.8 [place] % (Auto) 7.0 Eos % (Auto) 2.1 Baso % (Auto) 0.5 Neut # (Auto) 3.7 Lymph # (Auto) 3.2 [place] # (Auto) 0.5 Eos # (Auto) 0.2 Baso # (Auto) 0.0 Sodium 135 L Potassium 3.1 L Chloride 107 Carbon Dioxide 23 D Anion Gap 8.1 BUN < 2 L D Creatinine 0.30 L D Estimated Creat Clear 387 H Estimated GFR 273 Est GFR ( Amer) 331 D Glucose 87 D Calcium 8.3 L D Urine Color Urine Appearance Urine pH Ur Specific [place] Urine Protein Urine Glucose (UA) Urine Ketones Urine Blood Urine Nitrate Urine Bilirubin Urine Urobilinogen Ur Leukocyte Esterase Urine RBC Urine WBC Ur Squamous Epith Cells Urine Bacteria Chlamy pneumoniae PCR Not detected Adenovirus (PCR) Not detected B. pertussis DNA (PCR) Not detected Coronavirus OC43 (PCR) Not detected Coronavirus HKU1 (PCR) Not detected Coronavirus 229E (PCR) Not detected SARS-CoV-2 (PCR) Not detected Coronavirus NL63 (PCR) Not detected Human Metapneumovir PCR Not detected Influenza A (H1) PCR Not detected Influ A (H1N1/09) PCR Not detected Influenza A (H3) PCR Not detected Influenza Type A (PCR) Not detected Influenza Type B (PCR) Not detected M. pneumoniae (PCR) Not detected Parainfluenza 1 (PCR) Not detected Parainfluenza 2 (PCR) Not detected Parainfluenza 3 (PCR) Not detected Parainfluenza 4 (PCR) Not detected RSV (PCR) Not detected Entero/Rhino (PCR) Not detected 12/28/20 11:45 WBC RBC Hgb Hct MCV MCH MCHC RDW Plt Count MPV Neut % (Auto) Lymph % (Auto) [place] % (Auto) Eos % (Auto) Baso % (Auto) Neut # (Auto) Lymph # (Auto) [place] # (Auto) Eos # (Auto) Baso # (Auto) Sodium Potassium Chloride Carbon Dioxide Anion Gap BUN Creatinine Estimated Creat Clear Estimated GFR Est GFR ( Amer) Glucose Calcium Urine Color Yellow Urine Appearance Sl cloudy Urine pH 7.5 Ur Specific [place] 1.020 Urine Protein 1+ Urine Glucose (UA) Negative Urine Ketones 3+ Urine Blood Negative Urine Nitrate Negative Urine Bilirubin Negative Urine Urobilinogen 1.0 Ur Leukocyte Esterase Negative Urine RBC 3-5 Urine WBC 3-5 Ur Squamous Epith Cells 3-5 Urine Bacteria None Chlamy pneumoniae PCR Adenovirus (PCR) B. pertussis DNA (PCR) Coronavirus OC43 (PCR) Coronavirus HKU1 (PCR) Coronavirus 229E (PCR) SARS-CoV-2 (PCR) Coronavirus NL63 (PCR) Human Metapneumovir PCR Influenza A (H1) PCR Influ A (H1N1/09) PCR Influenza A (H3) PCR Influenza Type A (PCR) Influenza Type B (PCR) M. pneumoniae (PCR) Parainfluenza 1 (PCR) Parainfluenza 2 (PCR) Parainfluenza 3 (PCR) Parainfluenza 4 (PCR) RSV (PCR) Entero/Rhin
== END 2020-12-29 13:18 | disposition home or self-care (01) ==
LOC: ER 13:11 → OB 17:13
PROVIDERS: Emergency Medicine; Admitting Provider Obstetrics & Gynecology; Emergency Provider Emergency Medicine; Visit Provider Obstetrics & Gynecology
DX: O21.0 Mild hyperemesis gravidarum (principal); Z3A.20 20 weeks gestation of pregnancy
CPT/HCPCS: 36415; 76705; 80048; 80053; 81001; 82150; 83690; 85025; 87581; 87633; 87798; 96365; 96367; 96375; 96376; 99284; G0378; J2405

== ENCOUNTER 2021-01-04 14:10 | Outpatient (CLI) | payer BC, SELFPAY ==
[2021-01-04 14:20] VITALS: BP 112/67; PULSE 82; RESP 18; TEMP 36.1; O2SAT 97
[2021-01-04 14:50] VITALS: BP 115/62; PULSE 88; RESP 18; O2SAT 98
[2021-01-04 15:20] VITALS: BP 134/63; PULSE 84; RESP 20; O2SAT 98
== END 2021-01-04 15:25 | disposition home or self-care (01) ==
LOC: INF 14:17
PROVIDERS: Visit Provider Obstetrics & Gynecology
DX: Z3A.21 21 weeks gestation of pregnancy; O21.0 Mild hyperemesis gravidarum; E86.0 Dehydration; R11.2 Nausea with vomiting, unspecified
CPT/HCPCS: 96360; 96411; J2405

== ENCOUNTER 2021-01-08 13:35 | Outpatient (CLI) | payer BC, SELFPAY ==
[2021-01-08 13:45] VITALS: BP 157/89; PULSE 85; RESP 20; O2SAT 99
[2021-01-08 14:45] VITALS: BP 139/75; PULSE 88; RESP 18
== END 2021-01-08 14:48 | disposition home or self-care (01) ==
LOC: INF 15:19
PROVIDERS: Visit Provider Obstetrics & Gynecology
DX: O21.0 Mild hyperemesis gravidarum (principal); Z3A.21 21 weeks gestation of pregnancy; E86.0 Dehydration; R11.2 Nausea with vomiting, unspecified
CPT/HCPCS: 96360; 96375; J2405

== ENCOUNTER 2021-01-11 10:55 | Outpatient (CLI) | payer BC, SELFPAY ==
[2021-01-11 11:33] VITALS: BP 131/76; PULSE 106; RESP 18; TEMP 36.2; O2SAT 96
[2021-01-11 12:35] VITALS: BP 115/68; PULSE 87; RESP 16; TEMP 36.4; O2SAT 98
--- NOTE | 2021-01-11 12:39 | US_ITS ---
PROCEDURE: US OB FOLLOW UP CLINICAL INDICATION: Anatomy COMPARISON: US US OB <= 14 WEEKS FETUS from 11/18/2020 FINDINGS: There is a single live fetus present which is in cephalic presentation. heart body motion is noted. Cervix is closed measuring approximately 4 cm. The placenta is anterior. Placenta is grade 1. Complete survey performed and was unremarkable on the submitted images as in PACS. No discrete anomalies identified on survey imaging by technologist. Active fetus. Three-vessel cord with satisfactory umbilical cord insertion. 4- chamber heart noted. Survey of brain & ventricles Unremarkable. Face and neck survey unremarkable. Diaphragm and chest views unremarkable. Abdomen: Both kidneys noted and unremarkable. Stomach noted and satisfactory. Spine: Survey of the spine satisfactory with no anomalies identified nor imaged. Both arms and legs noted. Amniotic Fluid: Adequate. Maternal adnexa: No significant findings. Measurements: Average ultrasound age 20weeks. Gestational Age 20weeks Estimated due date by ultrasound age 0905/31/2021. Estimated weight 325g BPD = 20weeks OFD = 20weeks 3days HC = 19weeks 4days AC = 20weeks 1day FL = 20weeks 1day Growth Percentile= 45% Heart Rate = 155bpm Cerebellum = 20weeks Humerus = 20weeks 3days HC/AC is 1.13 CI is 0.77 FL/BPD is 0.7 FL/AC is 0.22 IMPRESSION: Live IUP which is in cephalic presentation with an average ultrasound age of 20 weeks 0 days. No obvious anomalies. Please see above for detail. Dictated by: Veto Gutierrez MD 01/12/2021 14:31 Veto Gutierrez MD in [place] 01/12/2021 14:31
== END 2021-01-11 12:38 | disposition home or self-care (01) ==
PROVIDERS: Visit Provider Obstetrics & Gynecology
DX: Z34.90 Encounter for supervision of normal pregnancy, unspecified, unspecified trimester (principal); O21.0 Mild hyperemesis gravidarum
CPT/HCPCS: 76816; 96360; 96375; J2405

== ENCOUNTER 2021-01-16 10:18 | Outpatient (CLI) | payer BC, SELFPAY ==
[2021-01-16 10:34] VITALS: BP 127/67; PULSE 79; RESP 18; TEMP 36.4; O2SAT 98
[2021-01-16 10:55] VITALS: BP 122/70; PULSE 74; RESP 16; TEMP 36.4; O2SAT 98
== END 2021-01-16 11:00 | disposition home or self-care (01) ==
LOC: INF 10:18
PROVIDERS: Visit Provider Obstetrics & Gynecology
DX: O26.892 Other specified pregnancy related conditions, second trimester (principal); Z3A.21 21 weeks gestation of pregnancy; E86.0 Dehydration; R11.2 Nausea with vomiting, unspecified
CPT/HCPCS: 96374; 96375; J2405

== ENCOUNTER 2021-01-22 10:21 | Emergency (ER) | payer BC, SELFPAY ==
[2021-01-22] VITALS (13 sets, daily range): BP systolic 120–151; BP diastolic 67–98; PULSE 78–128; RESP 11–20; TEMP 36.6–37.1; O2SAT 97–100; BMI 32.8
--- NOTE | 2021-01-22 10:27 | HMH.EDCP ---
ED Disposition Clinical Impression: Atypical chest pain, Hyperemesis affecting , antepartum Disposition: Xfer Short-Term Hosp Condition on Discharge: Good Instructions: DI for Atypical Chest Pain, Hyperemesis Gravidarum Referrals: PCP,No [Primary Care Provider] - Time of Disposition: 15:34 - Critical Care Critical Care Time: No Attestation: On 01/22/21, the high probability of a clinically significant, sudden or life threatening deterioration of the following system(s) required my full and direct attention, intervention and personal management. The time I documented below is in addition to time spent performing reported procedures but includes the following listed in this critical care notation. Medical Decision Making - Medical Records Medical records reviewed: Yes: I reviewed the patient's medical records. - Nilesh Inquiry Pt receiving controlled substance: No Vital Signs: 01/22/21 10:21 01/22/21 10:30 01/22/21 11:01 Temperature 98.7 F Temperature Source Oral Pulse Rate 125 H 94 H Pulse Rate [Left Radial] 128 H Respiratory Rate 20 18 18 Blood Pressure 120/77 142/86 H Blood Pressure [Right Arm] 151/98 H Blood Pressure Mean 91 129 Blood Pressure Mean [Right Arm] 115 02 Sat by Pulse Oximetry 97 97 99 Oxygen Delivery Method Room Air 01/22/21 11:30 01/22/21 11:45 01/22/21 12:01 Temperature Temperature Source Pulse Rate 91 H 93 H 86 Pulse Rate [Left Radial] Respiratory Rate 20 18 16 Blood Pressure 124/83 124/83 126/78 Blood Pressure [Right Arm] Blood Pressure Mean 89 Blood Pressure Mean [Right Arm] 02 Sat by Pulse Oximetry 100 98 99 Oxygen Delivery Method 01/22/21 12:30 01/22/21 13:00 01/22/21 13:30 Temperature Temperature Source Pulse Rate 94 H 78 Pulse Rate [Left Radial] Respiratory Rate 18 16 12 Blood Pressure 130/85 137/84 129/90 Blood Pressure [Right Arm] Blood Pressure Mean 89 Blood Pressure Mean [Right Arm] 02 Sat by Pulse Oximetry 100 98 Oxygen Delivery Method 01/22/21 14:00 01/22/21 14:30 01/22/21 14:37 Temperature Temperature Source Pulse Rate 82 92 H Pulse Rate [Left Radial] Respiratory Rate 14 12 11 L Blood Pressure 125/70 123/67 123/67 Blood Pressure [Right Arm] Blood Pressure Mean 74 Blood Pressure Mean [Right Arm] 02 Sat by Pulse Oximetry 99 98 Oxygen Delivery Method - Lab Data Lab Results 01/22/21 10:30: WBC 10.7, RBC 4.89, Hgb 15.3, Hct 44.3, MCV 90.6, MCH 31.2, MCHC 34.5, RDW 13.9, Plt Count 508 H, MPV 7.2 L, Neut % (Auto) 63.3, Lymph % (Auto) 26.7, [place] % (Auto) 7.8, Eos % (Auto) 1.4, Baso % (Auto) 0.8, Neut # (Auto) 6.8, Lymph # (Auto) 2.9, [place] # (Auto) 0.8, Eos # (Auto) 0.2, Baso # (Auto) 0.1 01/22/21 10:30: Sodium 136, Potassium 3.3 L, Chloride 104, Carbon Dioxide 20 L, Anion Gap 15.3 H, BUN 8, Creatinine 0.50 L, Estimated GFR 152, Est GFR ( Amer) 183, Glucose 112 H, Calcium 10.1, Total Bilirubin 0.5, AST 19, ALT 11 L, Alkaline Phosphatase 85, Troponin I < 0.01, Total Protein 8.3 H, Albumin 4.7, Globulin 3.6 H, Albumin/Globulin Ratio 1.3, Lipase 73 01/22/21 13:40: Troponin I < 0.01 Result diagrams: 01/22/21 10:30 01/22/21 10:30 Orders (Tests/Meds): ED MEDICATIONS Discontinued Medications Generic Name Dose Route Start Last Admin Trade Name Jose Raulq PRN Reason Stop Dose Admin Sodium Chloride 1,000 mls @ 999 mls/hr 01/22/21 10:45 01/22/21 10:47 Sod Chlor 0.9% 1000ml Bag IV 01/22/21 11:45 999 mls/hr .Q1H1M GABRIELLE Administration Promethazine HCl 25 mg 01/22/21 10:36 01/22/21 10:47 Promethazine Hcl 25mg/Ml 1ml Vial IV 01/22/21 10:37 25 mg ONCE ONE Administration Sodium Chloride 25 ml 01/22/21 10:36 01/22/21 10:46 Sodium Chloride 0.9% 25ml Bag IV 01/22/21 10:37 25 ml ONCE ONE Administration ORDERS Category Date Time Status Troponin I Q3H Lab 01/22/21 16:45 Ordered Urinalysis and Microscopic Stat Lab 01/22/21 10
--- NOTE | 2021-01-22 10:36 | XR_ITS ---
PROCEDURE: XR CHEST 2V CLINICAL HISTORY: hx of boerrhave with hematemesis chest pain COMPARISON: CR XR CHEST PORTABLE from 10/20/2020 CR XR CHEST 2V from 12/04/2020 CR XR CHEST PORTABLE from 12/26/2020 FINDINGS: The cardiomediastinal silhouette and pulmonary vascularity are within normal limits. The lungs are clear without infiltrates, suspicious nodules, or pleural effusions. No acute bony abnormalities. IMPRESSION: No acute findings. Dictated by: Veto Gutierrez MD 01/22/2021 11:09 Veto Gutierrez MD in OV 01/22/2021 11:09
[2021-01-22 10:45] LABS: Basophils # 0.1 K/mm3 (0-0.2); Basophils % 0.8 % (0.1-2.0); Eosinophils # 0.2 K/mm3 (0.0-0.4); Eosinophils % 1.4 % (0.1-12.0); Hematocrit 44.3 % (37.0-47.0); Hemoglobin 15.3 g/dL (12.2-16.2); Lymphocytes # 2.9 K/mm3 (0.7-4.5); Lymphocytes % 26.7 % (10-50); Mean Corpuscular HGB Conc 34.5 g/dL (31.8-35.4); Mean Corpuscular Hemoglobin 31.2 pg (27.0-31.2); Mean Corpuscular Volume 90.6 fl (81-99); Mean Platelet Volume 7.2 fl (7.4-10.4); Monocytes # 0.8 K/mm3 (0.1-1.0); Monocytes % 7.8 % (1.7-9.3); Neutrophils # 6.8 K/mm3 (1.8-7.8); Neutrophils % 63.3 % (37.0-80.0); Platelet Count 508 K/mm3 (142-424); Red Blood Count 4.89 M/mm3 (4.20-5.40); Red Cell Distribution Width 13.9 % (11.5-17.5); White Blood Count 10.7 K/mm3 (4.8-10.8)
[2021-01-22 10:48] LABS: Chloride 104 mmol/L (98-107)
[2021-01-22 10:49] LABS: Potassium 3.3 mmoL/L (3.5-5.1); Sodium 136 mmol/L (136-145)
[2021-01-22 10:51] LABS: Alanine Aminotransferase 11 U/L (12-78); Alkaline Phosphatase 85 U/L (38-126); Aspartate Amino Transferase 19 U/L (14-36); Bilirubin,Total 0.5 mg/dl (0.2-1.3); Blood Urea Nitrogen 8 mg/dl (7-17); Estimated Glomerular Filt Rate 152 ml/min (>60); GFR (African American) 183 ML/MIN (>60)
[2021-01-22 10:52] LABS: Albumin Level 4.7 g/dl (3.5-5.0); Albumin/Globulin Ratio 1.3 (1.1-1.8); Anion Gap 15.3 mEq/L (5-15); Calcium 10.1 mg/dl (8.4-10.2); Carbon Dioxide 20 mmol/L (22.0-30.0); Globulin 3.6 g/dL (1.3-3.2); Glucose 112 mg/dl (74-100); Lipase 73 U/L (23-300); Total Protein,Serum 8.3 g/dl (6.3-8.2)
[2021-01-22 11:05] LABS: Troponin I < 0.01 ng/ml (0.00-0.034)
[2021-01-22 14:21] LABS: Troponin I < 0.01 ng/ml (0.00-0.034)
--- NOTE | 2021-01-22 15:17 | PC.NURSE ---
Pt is now vomiting again at this time. MD asked to speak with OB about having her evaluated with OB department. Spoke to Abi in OB and she stated to just have pt discharged from us and to check in with them. MD aware of this.
[2021-01-22 16:35] LABS: Microscopic, Urine URINE MICROSCOPIC (MICROSCOPIC)
[2021-01-22 16:37] LABS: Appearance,Urine SL CLOUDY (Clear); Bilirubin,Urine Negative (Negative); Blood, Urine Negative (Negative); Color,Urine YELLOW (Yellow); Glucose,Urine (UA) Negative (Negative); Ketones,Urine 3+ (Negative); Leukocyte Esterase,Urine Negative (Negative); Nitrate,Urine Negative (Negative); Protein,Urine 1+ (Negative); Specific Gravity, Urine 1.025 (1.005-1.030)
[2021-01-22 16:52] LABS: Bacteria,Urine 4+ /lpf
== END 2021-01-22 15:40 | disposition short-term general hospital (02) ==
PROVIDERS: Emergency Provider Student in an Organized Health Care Education/Training Program
DX: O21.0 Mild hyperemesis gravidarum (principal); Z3A.21 21 weeks gestation of pregnancy
CPT/HCPCS: 36415; 71046; 80053; 81001; 83690; 84484; 85025; 87086; 96365; 96375; 99282

== ENCOUNTER 2021-01-22 15:43 | Outpatient (CLI) | payer BC, SELFPAY ==
--- NOTE | 2021-01-22 10:16 | ECG_ITS ---
APPROVED REPORT Exam: Resting ECG HR:106 bpm ECG Measurements Heart Rate 106 AXES VA 122 P 46 QRSd 76 QRS 58 QT 344 T 9 QTc 456 Conclusion Sinus tachycardia Nonspecific ST and T wave abnormality Abnormal ECG Electronically signed by : Soren Rowe, 01/22/2021 18:04:32
[2021-01-22 15:48] VITALS: BMI 31.1
[2021-01-22 16:14] VITALS: BP 132/75; PULSE 86; RESP 18; TEMP 37.4; O2SAT 100; BMI 31.1
== END 2021-01-22 18:15 | disposition home or self-care (01) ==
LOC: OBOUT 15:45 → OB 15:47
PROVIDERS: Visit Provider Obstetrics & Gynecology
DX: O26.892 Other specified pregnancy related conditions, second trimester (principal); Z3A.21 21 weeks gestation of pregnancy; R07.9 Chest pain, unspecified; R11.2 Nausea with vomiting, unspecified
CPT/HCPCS: 93005; 96365; 96367; G0463; J2405

== ENCOUNTER 2021-01-24 14:27 | Outpatient (CLI) | payer BC, SELFPAY ==
[2021-01-24 14:30] VITALS: BP 128/67; PULSE 77; RESP 20; TEMP 36.4; O2SAT 99
== END 2021-01-24 14:45 | disposition home or self-care (01) ==
LOC: INF 14:27
PROVIDERS: Visit Provider Obstetrics & Gynecology
DX: E86.0 Dehydration (principal); R11.2 Nausea with vomiting, unspecified
CPT/HCPCS: 96374; 96375; J2405

== ENCOUNTER → 2021-02-27 08:40 | Outpatient (CLI) | payer BC, SELFPAY ==
[2021-02-27 09:04] LABS: Glucose,Fasting 80 mg/dl (74-100)
[2021-02-27 11:54] LABS: Glucose 1 Hour 111 mg/dL (74-100)
[2021-02-28 13:34] LABS: Rapid Plasma Reagin Ab Titer Non Reactive (NonRea<1:1)
== END ==
PROVIDERS: Visit Provider Obstetrics & Gynecology
DX: Z34.90 Encounter for supervision of normal pregnancy, unspecified, unspecified trimester (principal)
CPT/HCPCS: 36415; 82951; 86592

== ENCOUNTER → 2021-04-20 13:01 | Outpatient (CLI) | payer BC, SELFPAY ==
--- NOTE | 2021-04-20 13:01 | US_ITS ---
PROCEDURE: US OB FOLLOW UP CLINICAL INDICATION: Growth and CHERIE COMPARISON: US US OB FOLLOW UP from 01/11/2021 FINDINGS: Anterior placenta is noted without evidence of abruption. Grade 2 placenta is noted. Single viable intrauterine gestation noted in cephalic presentation. The ultrasound gestational age measures 34 weeks and 1 day. The CHERIE measures 8.6 centimeters with maximum vertical pocket in left lower quadrant measuring 3.8 centimeters. Estimated weight measures 2329 grams which is 40th percentile. practice breathing and movements were noted. IMPRESSION: Single viable intrauterine gestation with gestational age of 34 weeks and 1 day. Dictated by: Fina Guidry 04/20/2021 14:38 Fina Guidry in OV 04/20/2021 14:38
== END ==
PROVIDERS: Visit Provider Obstetrics & Gynecology
DX: Z34.90 Encounter for supervision of normal pregnancy, unspecified, unspecified trimester (principal)
CPT/HCPCS: 76816

== ENCOUNTER 2021-05-07 09:26 | Outpatient (CLI) | payer BC, SELFPAY ==
[2021-05-07 09:55] VITALS: BP 112/67; PULSE 78; RESP 18; TEMP 36.8; O2SAT 98; BMI 34.4
== END 2021-05-07 10:55 | disposition home or self-care (01) ==
LOC: OBOUT 09:28 → OB 09:28
PROVIDERS: Visit Provider Obstetrics & Gynecology
DX: O26.893 Other specified pregnancy related conditions, third trimester (principal); Z3A.36 36 weeks gestation of pregnancy
CPT/HCPCS: 59025; G0463

== ENCOUNTER → 2021-05-08 16:49 | Outpatient (CLI) | payer BC, SELFPAY | PROVIDERS: Visit Provider Obstetrics & Gynecology | DX: Z34.90 Encounter for supervision of normal pregnancy, unspecified, unspecified trimester (principal) | CPT/HCPCS: 86403 ==

== ENCOUNTER 2021-05-18 08:50 | Outpatient (CLI) | payer BC, SELFPAY ==
[2021-05-18 09:10] VITALS: BP 120/71; PULSE 88; RESP 20; TEMP 36.7; O2SAT 97; BMI 34.9
[2021-05-18 09:16] VITALS: BMI 34.9
[2021-05-18 09:35] LABS: Coronavirus 19, PCR Not Detected (NotDetected); Influenza A, PCR Not Detected (NotDetected); Influenza B, PCR Not Detected (NotDetected)
== END 2021-05-18 10:05 | disposition home or self-care (01) ==
LOC: OBOUT 08:56 → OB 08:58
PROVIDERS: Visit Provider Nurse Practitioner Obstetrics & Gynecology
DX: O60.03 Preterm labor without delivery, third trimester (principal); Z3A.38 38 weeks gestation of pregnancy
CPT/HCPCS: 59025; G0463; U0003

== ENCOUNTER 2021-05-20 15:43 | Inpatient (IN) | payer BC, SELFPAY ==
[2021-05-20 15:47] VITALS: BMI 34.9
[2021-05-20 15:57] VITALS: BP 133/65; PULSE 98; RESP 18; TEMP 37; O2SAT 98; BMI 34.9
[2021-05-20 16:26] LABS: Microscopic, Urine URINE MICROSCOPIC (MICROSCOPIC)
[2021-05-20 16:35] LABS: Appearance,Urine CLEAR (Clear); Bilirubin,Urine Negative (Negative); Blood, Urine Negative (Negative); Color,Urine YELLOW (Yellow); Glucose,Urine (UA) Negative (Negative); Ketones,Urine 3+ (Negative); Leukocyte Esterase,Urine Negative (Negative); Nitrate,Urine Negative (Negative); Protein,Urine 2+ (Negative); Specific Gravity, Urine >= 1.030 (1.005-1.030)
[2021-05-20 16:40] LABS: Basophils # 0.1 K/mm3 (0-0.2); Basophils % 0.6 % (0.1-2.0); Eosinophils % 0.2 % (0.1-12.0); Hematocrit 36.6 % (37.0-47.0); Hemoglobin 11.8 g/dL (12.2-16.2); Lymphocytes # 2.3 K/mm3 (0.7-4.5); Lymphocytes % 22.2 % (10-50); Mean Corpuscular HGB Conc 32.2 g/dL (31.8-35.4); Mean Corpuscular Hemoglobin 28.5 pg (27.0-31.2); Mean Corpuscular Volume 88.4 fl (81-99); Mean Platelet Volume 8.2 fl (7.4-10.4); Monocytes # 0.5 K/mm3 (0.1-1.0); Monocytes % 4.8 % (1.7-9.3); Neutrophils # 7.4 K/mm3 (1.8-7.8); Neutrophils % 72.3 % (37.0-80.0); Platelet Count 416 K/mm3 (142-424); Red Blood Count 4.13 M/mm3 (4.20-5.40); Red Cell Distribution Width 14.7 % (11.5-17.5); White Blood Count 10.3 K/mm3 (4.8-10.8)
[2021-05-20 16:53] LABS: WBC,Urine Occasional #/hpf (0-3)
[2021-05-20 17:24] LABS: Barbiturates Screen,Urine Negative ng/ml (<200)
[2021-05-20 17:25] LABS: Amphetamine/Metha Screen,Urine Negative ng/ml (<1000); Benzodiazepines Screen,Urine Negative ng/ml (<200)
[2021-05-20 17:26] LABS: Cannabinoid Screen,Urine Negative ng/ml (<50); Cocaine Screen,Urine Negative ng/ml (<300)
[2021-05-20 17:27] LABS: Methadone Screen,Urine Negative ng/ml (<300)
[2021-05-20 17:28] LABS: Phencyclidine Screen,Urine Negative ng/ml (<25)
[2021-05-20 17:40] LABS: Opiate Screen,Urine Negative ng/ml (<300)
[2021-05-20 19:32] VITALS: BP 114/65; PULSE 86; RESP 18; TEMP 36.9; O2SAT 99
[2021-05-21 04:01] VITALS: BP 122/70; PULSE 83; RESP 18; TEMP 36.8; O2SAT 99
[2021-05-21 07:06] VITALS: BP 127/67; PULSE 82; RESP 16; TEMP 36.9; O2SAT 99
--- NOTE | 2021-05-21 07:09 | HMH.ANESCL ---
[facility] Anesthesia Checklist - Patient Identification Patient Identification: Arm Band, Verbal (Name & ) - Structural Data Admitted From: Inpatient Planned Operative Procedure/s: epidural Consent for Planned Operative Procedure(s) Verified: Yes Verified Documents: History and Physical - NPO Status Verified Time NPO: 00:00 - Chart Verification Results Verified: CBC, BMP - Additional verifications Patient : Yes Anesthesia Reactions: No Hx Blood Transfusions: No Blood Transfusion Reaction: No Cephalosporin Allergy: No Previous Colonoscopy: No - Cardiovascular Assessment Heart Sounds: S1 & S2 Pulse Strength: Baseline Pulse Rhythm: Regular Peripheral Edema: No - Airway Assessment C-Spine Mobility Assessed: Yes TMJ Mobility Assessed: Yes Dentition: Good Dentition - Neurological Assessment Level of Consciousness: Awake, Alert, Appropriate Hx Seizures: No Numbness or tingling in extremities: No - Anesthesia Plan Anesthesia Risk discussed: Yes Anesthesia Plan: Verified ASA Class: II Anesthesia Type: Epidural [facility] History I have reviewed the patient's past medical history: Yes *Have you ever received a pneumonia vaccine?: No *Have you received a flu vaccine this season?: No Other Medical History: Reports: Other Anesthesia experience/problems:: none Other Surgeries: No: Amputation: No Fractures: No - *Social History Smoking Status: Never smoker Alcohol Intake: never Substance Use Type: denies use *Occupational Status:: employed Housing: house Household Members: spouse *Travel in the last 8 weeks: None Family Hx:: No significant family history Para: 2
--- NOTE | 2021-05-21 09:01 | HMH.HP ---
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 History I have reviewed the patient's past medical history: Yes Medical History: Denies:: Seizures *Have you ever received a pneumonia vaccine?: No *Have you received a flu vaccine this season?: No Other Medical History: Reports: Other. Denies: Blood Transfusion Reaction Anesthesia experience/problems:: none Other Surgeries: No: Amputation: No Fractures: No - *Social History Smoking Status: Never smoker Alcohol Intake: never Substance Use Type: denies use *Occupational Status:: employed Housing: house Household Members: spouse *Travel in the last 8 weeks: None Family Hx:: No significant family history : 3 Para: 2 LMP comments: Review of Systems - Review of Systems Review of systems:: pertinent systems reviewed and negative unless documented below - *Respiratory Denies cough - *Genitourinary Reports other (+ irregular contractions), Denies abnormal vaginal bleeding Meds Home Medications Medication Instructions Recorded Confirmed Type vitamins-iron fumarate 27 1 tab PO DAILY tab 11/06/20 05/20/21 History mg iron-folic acid 0.8 mg tablet Ondansetron [Zofran 4mg ODT] 8 mg PO Q8HP PRN 11/20/20 05/21/21 History Allergies Allergy/AdvReac Type Severity Reaction Status Date / Time No Known Allergies Allergy Verified 05/15/21 13:41 Exam Vital signs and Labs for Last 24 Hours: Temp Pulse Resp BP Pulse Ox 98.5 F 82 16 127/67 99 05/21/21 07:06 05/21/21 07:06 05/21/21 07:06 05/21/21 07:06 05/21/21 07:06 Laboratory Results - last 24 hr 05/20/21 16:05: Urine Color Yellow, Urine Appearance Clear, Urine pH 6.0, Ur Specific [place] >= 1.030, Urine Protein 2+, Urine Glucose (UA) Negative, Urine Ketones 3+, Urine Blood Negative, Urine Nitrate Negative, Urine Bilirubin Negative, Urine Urobilinogen 1.0, Ur Leukocyte Esterase Negative, Urine RBC None, Urine WBC Occasional, Ur Squamous Epith Cells 3-5, Urine Bacteria None 05/20/21 16:05: Urine Opiates Screen Negative, Urine Methadone Screen Negative, Ur Barbituates Screen Negative, Ur Phencyclidine Scrn Negative, Ur Amphetamines Screen Negative, U Benzodiazepines Scrn Negative, Urine Cocaine Screen Negative, U Marijuana (THC) Screen Negative 05/20/21 16:20: WBC 10.3, RBC 4.13 L, Hgb 11.8 L, Hct 36.6 L, MCV 88.4, MCH 28.5, MCHC 32.2, RDW 14.7, Plt Count 416, MPV 8.2, Neut % (Auto) 72.3, Lymph % (Auto) 22.2, [place] % (Auto) 4.8, Eos % (Auto) 0.2, Baso % (Auto) 0.6, Neut # (Auto) 7.4, Lymph # (Auto) 2.3, [place] # (Auto) 0.5, Eos # (Auto) 0.0, Baso # (Auto) 0.1 05/20/21 16:20: Blood Type A Positive, Antibody Screen Negative I & O for Last 24 hours: Intake & Output 05/18/21 05/19/21 05/20/21 05/21/21 11:59 11:59 11:59 11:59 Weight 210 lb - Constitutional no acute distress - *Routine HEENT Exam Head: Present: normocephalic Eye: Present: EOMI, PERRL ENT: Present: mucous membranes moist - *Routine Neck Exam Present: supple. Absent: lymphadenopathy - *Routine Respiratory Exam Present: CTA bilaterally - *Routine Cardiovascular Exam Present: RRR - *Routine Abdominal Exam Present: soft, normoactive bowel sounds. Absent: tenderness - *Routine Rectal Exam Rectal:: deferred - *Routine Genitalia Exam Genitalia:: normal female Comment:: cervix 1-2cm at admission - *Routine Extremities Exam Absent: cyanosis, clubbing, edema - *Routine Skin Exam Present: warm. Absent: rash - *Routine Neurologi
--- NOTE | 2021-05-21 10:35 | HMH.DN ---
- Delivery Note Delivery Date:: 05/21/21 Delivery Time:: 09:22 Anesthesia Type: Epidural Was labor medically induced?: Yes Induction method: per pitocin protocol Gestational age (weeks): 38 delivered prior to 39 weeks?: Yes Justification for early elective delivery:: Oligohydraminos Infant Gender: Female at 1 minute: 9 at 5 minutes: 9 Delivery Procedure:: Spontaneous vaginal delivery of liveborn female infant over intact perineum. Delivery uncomplicated No nuchal cord or shoulder dystocia with delivery placed in CAM with mother immediately after umbilical cord clamped/cut, with standard nursing assessment performed True knot noted in umbilical cord following delivery Apgars: 9 & 9 Placenta spontaneously expressed and examined; noted to be complete/intact. Vulva, vagina, and cervix inspected; first degree laceration repaired with 2-0 vicryl interrupted fashion EBL: 300 cc All sponge/needle/instrument counts correct at conclusion of procedure Disposition: Mom/baby stable to recovery in LDRP Laceration:: vaginal (1st degree) Placental Delivery Description: Spontaneous
[2021-05-21 11:32] VITALS: BP 122/63; PULSE 86; RESP 18; TEMP 36.7; O2SAT 98
[2021-05-21 16:02] VITALS: BP 118/54; PULSE 86; RESP 17; TEMP 36.8; O2SAT 98
--- NOTE | 2021-05-21 17:46 | HMH.DCSUM ---
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 but paternal screen negative mild anemia with Hgb 11.8 cervix 1-2 cm and brought in for cervical ripening with prostaglandins, followed by pitocin augmentation Hospital Course Hospital Course: Normal, uncomplicated vaginal delivery No shoulder dystocia or trauma with delivery; delivered in controlled manner with single push True knot noted in umbilical cord, but no nuchal cord lochia appropriate Later during the day of delivery, the began having respiratory issues and CXR showed cardiomegally and some RDS Decision was made by peds to transfer the to and mother requested discharge at same time She is doing well and bleeding is appropriate Objective Vital signs: Temp Pulse Resp BP Pulse Ox 98.3 F 86 17 118/54 L 98 05/21/21 16:02 05/21/21 16:02 05/21/21 16:02 05/21/21 16:02 05/21/21 16:02 Narrative: CONSTITUTIONAL: no acute distress HEENT: mucous membranes moist PULMONARY: breathing unlabored without audible wheezes CV: no tachycardia or visible JVD; normal LE peripheral pulses ABD: soft, NT/ND, no guarding : fundus firm at umbilicus SKIN: no visible rash or lesions EXT: no edema LEs NEURO: alert/oriented, no altered mental status PSYCH: appropriate mood and demeanor DS: Diagnosis - Discharge Diagnosis (1) 38 weeks gestation of Status: Acute (2) Oligohydramnios Status: Acute (3) Anemia affecting Status: Acute (4) Hyperemesis affecting , antepartum Status: Acute (5) Vaginal delivery Status: Acute Discharge Plan - Patient Discharge Instructions ACTIVITY: Continue current activity DIET: regular diet Additional Instructions: No heavy lifting/strenuous activity. Nothing in the vagina for 6 weeks. Follow up with MD as scheduled. Patient Instructions: Depression, Hemorrhage, DI for Labor and Delivery, Vaginal , DI for Pre-eclampsia, [facility] Post Discharge Instructions, Preventing the Spread of Coronavirus Discharge Instructions - Follow up Plan Follow up with: Jessica Lafleur MD [Staff Physician] - Disposition: Home, Self-Care Condition at discharge:: Stable Home Medications: Home Medications Medication Instructions Recorded Confirmed Type vitamins-iron fumarate 27 1 tab PO DAILY tab 11/06/20 05/20/21 History mg iron-folic acid 0.8 mg tablet Ondansetron [Zofran 4mg ODT] 8 mg PO Q8HP PRN 11/20/20 05/21/21 History Prescriptions/Medication Reconciliation: New Ibuprofen [Motrin 400mg tablet] 800 mg PO Q6HP PRN tablet PRN Reason: Mild To Moderate Pain Acetaminophen [Acetaminophen 325mg tab] 650 mg PO Q4HP PRN tablet PRN Reason: Mild Pain Continued vitamins-iron fumarate 27 mg iron-folic acid 0.8 mg tablet 1 tab PO DAILY tab Ondansetron [Zofran 4mg ODT] 8 mg PO Q8HP PRN PRN Reason: Nausea And Vomiting - Problem Reconciliation Problems Reviewed?: Yes
== END 2021-05-21 20:15 | disposition home or self-care (01) | DRG 806 ==
PROVIDERS: Admitting Provider Obstetrics & Gynecology; Visit Provider Obstetrics & Gynecology
DX: O70.0 First degree perineal laceration during delivery (principal); O41.03X0 Oligohydramnios, third trimester, not applicable or unspecified; Z37.0 Single live birth; Z3A.38 38 weeks gestation of pregnancy
CPT/HCPCS: 59409 ×2; 59025; 80305; 81001; 85025; 86850; 94761; G0283; J2405

== ENCOUNTER → 2022-05-27 07:42 | Outpatient (CLI) | payer BC, SELFPAY ==
[2022-05-27 08:03] LABS: Basophils # 0.1 K/mm3 (0-0.2); Basophils % 2.5 % (0.1-2.0); Eosinophils # 0.2 K/mm3 (0.0-0.4); Eosinophils % 3.2 % (0.1-12.0); Hematocrit 45.7 % (37.0-47.0); Hemoglobin 14.1 g/dL (12.2-16.2); Lymphocytes # 2.2 K/mm3 (0.7-4.5); Lymphocytes % 48.2 % (10-50); Mean Corpuscular HGB Conc 30.9 g/dL (31.8-35.4); Mean Corpuscular Volume 93.9 fl (81-99); Mean Platelet Volume 7.4 fl (7.4-10.4); Monocytes # 0.3 K/mm3 (0.1-1.0); Monocytes % 5.7 % (1.7-9.3); Neutrophils # 1.8 K/mm3 (1.8-7.8); Neutrophils % 40.4 % (37.0-80.0); Platelet Count 368 K/mm3 (142-424); Red Blood Count 4.86 M/mm3 (4.20-5.40); Red Cell Distribution Width 14.1 % (11.5-17.5); White Blood Count 4.5 K/mm3 (4.8-10.8)
[2022-05-27 08:30] LABS: HCG Qualitative, Serum Negative (Negative)
[2022-05-27 08:32] LABS: Alanine Aminotransferase 17 U/L (12-78); Albumin Level 4.1 g/dl (3.5-5.0); Albumin/Globulin Ratio 1.5 (1.1-1.8); Alkaline Phosphatase 83 U/L (38-126); Anion Gap 11.1 mEq/L (5-15); Aspartate Amino Transferase 27 U/L (14-36); Bilirubin,Total < 0.1 mg/dl (0.2-1.3); Blood Urea Nitrogen 8 mg/dl (7-17); Calcium 9.3 mg/dl (8.4-10.2); Carbon Dioxide 28 mmol/L (22.0-30.0); Chloride 104 mmol/L (98-107); Estimated Glomerular Filt Rate 121 ml/min (>60); GFR (African American) 146 ML/MIN (>60); Globulin 2.7 g/dL (1.3-3.2); Glucose 86 mg/dl (74-100); Potassium 4.1 mmoL/L (3.5-5.1); Sodium 139 mmol/L (136-145); Total Protein,Serum 6.8 g/dl (6.3-8.2)
== END ==
PROVIDERS: Visit Provider Obstetrics & Gynecology
DX: Z01.812 Encounter for preprocedural laboratory examination (principal); Z20.822 Contact with and (suspected) exposure to COVID-19; N92.0 Excessive and frequent menstruation with regular cycle; Z30.09 Encounter for other general counseling and advice on contraception
CPT/HCPCS: 36415; 80053; 84703; 85025; C9803; U0003; U0005

== ENCOUNTER 2022-05-28 07:25 | Day surgery (SDC) | payer BC, SELFPAY ==
[2022-05-27 09:43] VITALS: BMI 28.9
[2022-05-28] VITALS (19 sets, daily range): BP systolic 100–130; BP diastolic 44–76; PULSE 48–66; RESP 10–18; TEMP 36.1–43; O2SAT 95–99
--- NOTE | 2022-05-28 08:21 | EXP.ANES.CKL ---
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 History of vaginal delivery Hypokalemia Personal history of COVID-19 Social History (Updated 05/27/22 @ 09:45 by Adrianne Orourke RN) Smoking Status: Never smoker alcohol intake: current substance use type: denies use current occupational status: employed household members: spouse housing: house [facility] Anesthesia Checklist Patient Identification Patient Identification: Arm Band and Verbal (Name & ) Structural Data Admitted From: Home Planned Operative Procedure/s: Tubal Consent for Planned Operative Procedure(s) Verified: Yes NPO Status Verified Time NPO: 00:00 Chart Verification Results Verified: HCG Additional verifications Patient : No Anesthesia Reactions: No Hx Blood Transfusions: No Blood Transfusion Reaction: No Airway Assessment C-Spine Mobility Assessed: Yes TMJ Mobility Assessed: Yes Dentition: Good Dentition Neurological Assessment Level of Consciousness: Awake Hx Seizures: No Numbness or tingling in extremities: No Anesthesia Plan Anesthesia Risk discussed: Yes Anesthesia Plan: Verified ASA Class: I Anesthesia Type: General
--- NOTE | 2022-05-28 10:21 | EXP.ANES.I ---
[facility] Anesthesia Record Part I Anesthesia Record I Intake, IV Amount: 1,200 Estimated blood loss (mL): 10 Urine output (mL): 0 Blood Pressure: 110/57 SaO2: 95 Pulse Rate: 66 Respiratory Rate: 16 Temperature: 98.8 F Patient is:: Drowsy and Stable Stable to PACU at:: 10:15
--- NOTE | 2022-05-28 11:26 | SUR.PHASEI ---
1030- rfeekenji dumas aware of pt heart rate being low 50's. No further orders at this time 1115- detailed report called to yana parsons in post op. pt left in stable condition at this time.
--- NOTE | 2022-05-28 12:22 | EXP.OP.NOTE ---
Date of procedure: 05/28/22 Pre-op Diagnosis:: Undesired fertility Post-op Diagnosis:: Same Procedure performed:: Laparoscopic tubal ligation Surgeon:: Jessica Lafleur MD Helicopter Officer(s):: None [employer] SALES SUPERVISOR:: Eris Coburn Anesthesia: GETMelvni Estimated blood loss (mL): 5 Operative findings:: Normal pelvic anatomy Operative note:: The patient was taken to the operating room and general anesthesia was administered. She was prepped/draped in lithotomy position. A uterine manipulator was placed without difficulty. Gloves were changed and attention was turned to the abdomen. A 5mm skin incision was made in the umbilical fold and the Verees needle was inserted through the peritoneum and into the abdominal cavity in standard fashion. The abdomen was insufflated with CO2 gas. A 5mm non-bladed trocar was inserted directly into the abdominal cavity and appropriate placement was confirmed with the laparoscope. No intra-abdominal injuries occurred during entry into the abdominal cavity, as confirmed visually with the laparoscope. The patient was placed in trendelenburg and a 8mm skin incision was made 2cm above the pubic symphysis. A 8mm non-bladed trocar was inserted under direct visualization, without complication. The uterus was elevated out of the pelvis in order to better visualize the anatomy. A survey of the pelvis and abdomen revealed the findings noted above. The uterus was angled towards the patient right and the left fallopian tube was grasped and a [place] clip was placed over the tube. The clip was noted to completely occlude the tube. The uterus was then angled towards the patient left, and the right fallopian tube was grasped and a [place] clip was placed over the tube. The clip was noted to completely occlude the tube. The uterine manipulator was removed. The abdomen was then evacuated of gas and all trocars removed. The skin incisions were closed with Dermabond. The patient tolerated the procedure well. Sponge/lap/needle/instrument counts were correct at conclusion of procedure. She was taken out of lithotomy position and awakened from anesthesia, and was taken to the recovery room in stable condition. Condition: stable Disposition: PACU Specimens:: None Complications:: None
--- NOTE | 2022-05-28 14:45 | SUR.OPER ---
1015-detailed report to carly jimenez rn
--- NOTE | 2022-05-29 08:15 | P.PNANES_ITS ---
[facility] Anesthesia Record Part II Anesthesia Record Part II Discharge Time: 11:15 Destination: Surgical Day Care (OP Surgery) PACU nurse assessment reviewed?: Yes Patient Condition:: Good Anesthesia Complications:: None Swallowing reflex intact?: Yes Cyanosis?: No Blood Pressure: 111/69 Pulse Rate: 51 Temperature: 98.8 F Mental Status: Alert & Oriented Pain level:: 4 Nausea and/or vomitting:: None Intake, IV Amount: 0
[2022-05-29 08:16] VITALS: BP 111/69; PULSE 51; TEMP 37.1
== END 2022-05-28 12:10 | disposition home or self-care (01) ==
PROVIDERS: PCP Obstetrics & Gynecology; Visit Provider Obstetrics & Gynecology
PROC: 0UL74ZZ Occlusion of Bilateral Fallopian Tubes, Percutaneous Endoscopic Approach (ICD-10-PCS; CPT 58670; principal; 2022-05-28 09:00)
DX: Z30.2 Encounter for sterilization (principal)
CPT/HCPCS: 58671; 96374; J2405; J2710

== ENCOUNTER 2024-09-17 11:05 | Outpatient (CLI) | payer BC, SELFPAY ==
[2024-09-17 17:56] LABS: Coronavirus 19, PCR Not Detected (NotDetected); Influenza B, PCR Not Detected (NotDetected)
[2024-09-17 18:46] LABS: Influenza A, PCR Detected (NotDetected)
== END 2024-09-17 23:59 | disposition home or self-care (01) ==
LOC: LAB.DROPOF 09-20 10:22
PROVIDERS: PCP Family Medicine; Visit Provider Family Medicine
DX: J09.X9 Influenza due to identified novel influenza A virus with other manifestations (principal); R09.81 Nasal congestion; R51.9 Headache, unspecified; R05.9 Cough, unspecified
CPT/HCPCS: 87636